=== PATIENT | female | born 1990 | race Caucasian/White ===

== ENCOUNTER → 2019-12-14 09:49 | Outpatient (BNVA) | payer BC, SELFPAY | PROVIDERS: Family Provider Nurse Practitioner Family; PCP Nurse Practitioner Family; Visit Provider Registered Nurse | DX: E03.9 Hypothyroidism, unspecified (principal) | CPT/HCPCS: 84443 ==

== ENCOUNTER → 2020-07-29 09:53 | Outpatient (BNVA) | payer BC, SELFPAY | PROVIDERS: Family Provider Nurse Practitioner Family; PCP Nurse Practitioner Family; Referring Provider Registered Nurse; Visit Provider Internal Medicine | DX: O99.282 Endocrine, nutritional and metabolic diseases complicating pregnancy, second trimester (principal); E03.9 Hypothyroidism, unspecified; E06.3 Autoimmune thyroiditis; R79.89 Other specified abnormal findings of blood chemistry | CPT/HCPCS: 99204 ==

== ENCOUNTER → 2020-08-01 08:51 | Outpatient (BNVA) | payer BC, SELFPAY | PROVIDERS: Family Provider Nurse Practitioner Family; PCP Nurse Practitioner Family; Visit Provider Registered Nurse | DX: E03.9 Hypothyroidism, unspecified (principal); R79.89 Other specified abnormal findings of blood chemistry | CPT/HCPCS: 84436 ==

== ENCOUNTER 2021-12-19 16:05 | Outpatient (CLI) | payer BC, SELFPAY ==
[2021-12-19 17:07] LABS: Free T4 Free Thyroxine 1.44 ng/dL (0.82-1.77); Thyroid Stimulating Hormone 1.56 uIU/mL (0.27-4.20)
== END 2021-12-19 16:06 | disposition home or self-care (01) ==
LOC: LAB 16:14
PROVIDERS: PCP Registered Nurse; Visit Provider Internal Medicine
DX: E03.8 Other specified hypothyroidism (principal); E06.3 Autoimmune thyroiditis; R79.89 Other specified abnormal findings of blood chemistry
CPT/HCPCS: 36415; 84439; 84443

== ENCOUNTER 2022-06-23 19:05 | Outpatient (CLI) | payer BC, SELFPAY ==
[2022-06-23] VITALS (9 sets, daily range): BP systolic 85–109; BP diastolic 50–63; PULSE 69–81; RESP 18; TEMP 36.1; BMI 30.7
[2022-06-23 20:29] LABS: Bilirubin Urine Neg (Negative); Blood Urine Neg (Negative); Glucose Urine UA Norm (Normal); Ketones Urine Negative (Negative); Leukocyte Esterase Urine Negative (Negative); Nitrate Urine Negative (Negative); Protein Urine Neg (Negative); Sulfosalicylic Acid Urine Negative (Negative); Urine Appearance SL Hazy (CLEAR); Urine Color Yellow (Yellow); Urobilinogen Urine Norm (Negative); pH Urine 8 (5-7)
[2022-06-23 20:30] LABS: Amorphous Sediment Urine 1+ /hpf; Bacteria Urine TRACE /hpf; Mucus Urine TRACE /hpf; RBC Urine RARE /hpf (0-2); Squamous Epithelial Cell Urine 0-4 /hpf (0-5); WBC Urine 0-4 /hpf (0-5)
[2022-06-23 20:31] LABS: Add Urine Culture? No; Coarse Granular Casts Urine 0-4 /lpf
== END 2022-06-23 20:45 | disposition home or self-care (01) ==
LOC: OPOB 19:17 → OBGYN 19:18
PROVIDERS: PCP Registered Nurse; Visit Provider Family Medicine
DX: O26.899 Other specified pregnancy related conditions, unspecified trimester (principal); Z3A.00 Weeks of gestation of pregnancy not specified; R10.9 Unspecified abdominal pain; M54.9 Dorsalgia, unspecified
CPT/HCPCS: 81001; 99211; J0330; J1170; J2370; J2405; J2704; J2710; J3010; J3490

== ENCOUNTER 2022-06-23 20:52 | Observation (INO) | payer BC, SELFPAY ==
[2022-06-23 21:12] VITALS: BP 108/63; PULSE 80; RESP 16; TEMP 36.4; O2SAT 100; BMI 32.8
[2022-06-23] MEDS: ondansetron 2 mg/ML SDV 2 mL 4 MG IVP (22:00)
[2022-06-23 22:01] VITALS: RESP 22
[2022-06-23] MEDS: morphine 4 mg/mL SDV 1 mL IVP ×2 (22:01→23:43)
[2022-06-23 22:03] LABS: Basophils % 0.2 %; Eosinophils # 0.1 10^3/uL (0.0-0.8); Eosinophils % 0.6 %; Hematocrit 30.6 % (37.0-47.0); Hemoglobin 9.7 g/dL (11.5-15.3); Lymphocytes # 1.2 10^3/uL (0.8-4.8); Lymphocytes % 10.9 %; Mean Corpuscular HGB Conc 31.7 g/dL (30.0-36.0); Mean Corpuscular Hemoglobin 26.2 pg (28.0-34.0); Mean Corpuscular Volume 82.7 fl (81-99); Mean Platelet Volume 9.4 fL (7.4-10.4); Monocytes # 0.6 10^3/uL (0.2-0.9); Monocytes % 5.6 %; Neutrophils # 9.28 10^3/uL (1.8-7.7); Neutrophils % 82.3 %; Nucleated Red Blood Cells % 0 %; Platelet Count 313 10^3/cmm (130-400); Red Cell Distribution Width 13.1 % (12.1-15.1); White Blood Count 11.3 10^3/uL (4.0-10.0)
[2022-06-23] MEDS: metoclopramide 5 mg/mL SDV 2 mL 10 MG IVP (22:04)
[2022-06-23] MEDS: sodium chloride 0.9% 1,000 ML 999 ML IV ×2 (22:11→23:43)
--- NOTE | 2022-06-23 22:16 | USR_ITS ---
NOTE: Report was unsigned for reason: Order was edited. Original Signature date and time was: 06/23/2022 [id number] PROCEDURE INFORMATION: Exam: US , Limited Exam date and time: 06/23/2022 10:24 PM Age: 31 years old Clinical indication: complicated by abdominal or pelvic pain; Generalized abdominal pain; Second trimester (14 weeks 0 days to 27 weeks 6 days); Gestational age or lmp: 25w2d; ; Additional info: Abd pain 25 wks preg. LABS AND CLINICAL REPORTS: Serum Choriogonadotropin (HCG): 0 mIU/mL Last menstrual period start date: Unknown; 12/26/2021 Gestational age (Established): 25 w 4 d Estimated due date (Established): 10/02/2022 TECHNIQUE: Imaging protocol: Real-time ultrasound of the maternal uterus with image documentation. Exam focused on the clinical indication. COMPARISON: US OB >= 14 weeks fetus [id number] 05/08/2022 11:19 AM FINDINGS: Gestation: Single live intrauterine fetus in transverse presentation. heart rate: 138 bpm presentation: Transverse presentation. Placenta: Posterior placenta without previa. Amniotic fluid: Amniotic fluid volume is normal. Amniotic fluid index: GARRETT is 15 cm. BIOMETRY: Gestational age (AUA): 25 w 2 d Estimated due date (AUA): 10/04/2022 Head circumference (HC): 22.2 cm. EGA (HC) is 24 w 1 d Femur length (FL): 4.9 cm. EGA (FL) is 26 w 3 d Cephalic Index (CI): 0.92 FL/HC: 0.22 MATERNAL: Cervix: Cervical length measures 3.4 cm. [facility]US pelvic limited [id number] IMPRESSION: Single live intrauterine fetus in transverse presentation with gestational age by ultrasound of 25 weeks 2 days and estimated due date of 10/04/2022.
[2022-06-23 22:24] LABS: Alanine Aminotransferase 8 U/L (0-33); Albumin Level 3.8 g/dL (3.5-5.2); Alkaline Phosphatase 67 U/L (35-105); Anion Gap 19.5 (5-19); Aspartate Amino Transferase 13 U/L (0-32); Blood Urea Nitrogen 4 mg/dL (6-20); C Reactive Protein 3.4 mg/L (0.0-4.9); Calcium 9.1 mg/dL (8.5-10.5); Carbon Dioxide 17 mmol/L (22-29); Chloride 106 mmol/L (98-107); Creatine Phosphokinase 72 U/L (26-192); Globulin 3.1 g/dL (1.3-4.6); Glucose 92 mg/dL (65-115); Lipase 23 U/L (13-60); Osmolality Calculated 285 mOsm/kg (285-295); Potassium 3.5 mmol/L (3.5-5.1); Sodium 139 mmol/L (136-145); Total Bilirubin 0.5 mg/dL (0.15-1.2); Total Protein 6.9 g/dL (6.6-8.7)
[2022-06-23 23:43] VITALS: RESP 14
--- NOTE | 2022-06-23 23:51 | CTR_ITS ---
PROCEDURE INFORMATION: Exam: CT Abdomen And Pelvis Without Contrast Exam date and time: 06/23/2022 11:59 PM Age: 31 years old Clinical indication: Abdominal pain; Additional info: Epigastric and luq pain, 25w gestation TECHNIQUE: Imaging protocol: Computed tomography of the abdomen and pelvis without contrast. Radiation optimization: All CT scans at this facility use at least one of these dose optimization techniques: automated exposure control; mA and/or kV adjustment per patient size (includes targeted exams where dose is matched to clinical indication); or iterative reconstruction. COMPARISON: pelvic limited [id number] 06/23/2022 10:24 PM RADIATION DOSE METRICS: Total DLP (mGy-cm): 676.6 FINDINGS: Liver: No acute abnormality on noncontrast imaging. Gallbladder and bile ducts: Moderately distended gallbladder without evidence of gallstones. No significant biliary ductal dilatation. Pancreas: No acute abnormality. No ductal dilation. Spleen: No acute abnormality. Adrenal glands: No acute abnormality. No mass. Kidneys and ureters: Mild bilateral hydronephrosis. Stomach and bowel: No acute abnormality. No obstruction. No significant bowel thickening. Appendix: 12-14 mm diameter dilated thickened fluid-filled retrocecal appendix with periappendiceal inflammation consistent with acute appendicitis. Proximal appendicolith. Intraperitoneal space: No significant fluid collection. No free air. Vasculature: No acute abnormality. No abdominal aortic aneurysm. Lymph nodes: No enlarged lymph nodes. Urinary bladder: Moderately distended urinary bladder. No bladder calculi. Reproductive: Prominent gravid uterus containing single fetus in vertex presentation. Bones/joints: No acute osseous abnormality. No dislocation. Soft tissues: Mild rectus abdominis diastasis and ventral eventration. CT/CT abdomen pelvis [facility] [id number] IMPRESSION: 1. 12-14 mm diameter dilated thickened fluid-filled retrocecal appendix with periappendiceal inflammation consistent with acute appendicitis. 2. Mild bilateral hydronephrosis. 3. Prominent gravid uterus containing single fetus in vertex presentation.
[2022-06-24] VITALS (18 sets, daily range): BP systolic 96–118; BP diastolic 53–70; PULSE 73–98; RESP 15–23; TEMP 36.2–36.8; O2SAT 97–100
[2022-06-24] MEDS: piperacillin-tazobactam 3.375 GM in sodium chloride 0.9% (plus) 50 ML IV ×3 (01:12→16:38)
[2022-06-24] MEDS: morphine 4 mg/mL SDV 1 mL IVP (01:22)
[2022-06-24] MEDS: lactated ringers 1,000 ML 125 ML IV ×2 (03:18→16:38)
[2022-06-24] MEDS: acetaminophen 325 mg Tablet 650 MG PO ×3 (06:39→23:02)
--- NOTE | 2022-06-24 07:37 | P.ANESASSM_ITS ---
Pre-Anesthetic Assessment Height/Weight: Height 1.52 m Weight 76.204 kg Temp Pulse Resp BP Pulse Ox O2 Del Method 98.0 F 82 16 105/62 99 06/24/22 07:33 06/24/22 07:33 06/24/22 07:33 06/24/22 07:33 06/24/22 07:33 06/24/22 07:33 Preop Diagnosis: acute appendicitis Familial anesthetic complications: laparoscopic appendectomy Was Beta Beth taken within 24 hours: N/A Was Clonidine taken within 24 hours: N/A Last intake: none Social No alcohol and No tobacco Exam alert, oriented x 3, clear to auscultation bilaterally and regular rate & rhythm Airway Submandibular: within normal limits Cervical ROM: within normal limits Mallampati: Class II Dentition: full History/ROS No significant complaints Pulmonary None reported CV/HEM None reported None reported Hepatic None reported GI None reported Metabolic Thyroid Disease Obesity [facility] [place] None reported Neuropsych None reported Anesthetic Plan ASA status: 2 Anesthesia: Anesthesia Evaluation and General Other: We discussed risk and benefits of general anesthesia including PONV, sore throat (sometimes severe), corneal abrasion, positioning and peripheral nerve injuries, life threatening allergic reaction, post operative ICU admission requiring prolonged intubation, aspiration, stroke, heart attack, , injury/naif th, premature , risk of medications to development , and rare incidences of recall. Patient consents to proceed with general anesthesia. Discussed patient with Doctor Gilma and Doctor Miguel regarding use of betamethasone. Plan 2 doses of 12 mg IM betamethasone. Orders placed. Patient and her instructed to f/u w/ outpatient OB department if she is discharged tomorrow morning prior to receiving her second dose of betamethasone. Risk of > 500 ml blood loss (7ml/kg in children): No Other Pertinent Information 2nd trimester Medications/Allergies Home Medications Medication Instructions Recorded Confirmed Last Taken Type levothyroxine 175 mcg capsule 175 mcg PO DAILY #90 caps 10/19/21 06/23/22 06/22/22 20:00 Rx Allergies Allergy/AdvReac Type Severity Reaction Status Date / Time No Known Allergies Allergy Verified 06/23/22 22:16 Current Medications Generic Name Dose Route Start Last Admin Trade Name Freq PRN Reason Stop Dose Admin Acetaminophen 650 mg 06/24/22 06:31 06/24/22 06:39 Acetaminophen 325 Mg Tablet PO 650 mg Q6H PRN Administration MILD PAIN Lactated Ringer's 1,000 mls @ 125 mls/hr 06/24/22 02:43 06/24/22 03:18 Lactated Ringers IV 125 mls/hr .Q8H PARAMJIT Administration PFSH Anesthesia Medical History Darryl's disease Hypothyroidism PCOS (polycystic ovarian syndrome) Surgical History History of tonsillectomy Family History Brother Diabetes Cancer brain seizures Social History Smoking and tobacco status: former smoker (stopyear 2018) Alcohol intake: never Adopted: No Caregiver/support person: No Lives independently: No Household members: spouse Marital status: Current occupational status: employed History of recent travel: No Sexually active: Yes Current gender identity: Female Data Anesthesia : 06/23/22 21:47 06/23/22 21:47 Short CBC 06/23/22 Range/Units 21:47 WBC 11.3 H (4.0-10.0) 10^3/uL Hgb 9.7 L (11.5-15.3) g/dL Hct 30.6 L (37.0-47.0) % MCV 82.7 (81-99) fl Plt Count 313 (130-400) 10^3/cmm Neut % (Auto) 82.3 % Neut # (Auto) 9.28 H (1.8-7.7) 10^3/uL BMP 06/23/22 21:47 Sodium 139 Potassium 3.5 Chloride 106 Carbon Dioxide 17 L BUN 4 L Creatinine 0.5 Glucose 92 Calcium 9.1 Cardiac Enzymes 06/23/22 Range/Units 21:47 Creatine Kinase 72 (26-192) U/L Liver Function 06/23/22 Range/Units 21:47 Total Bilirubin 0.5 (0.15-1.2) mg/dL AST 13 (0-32) U/L ALT 8 (0-33) U/L Alkaline Phosphatase 67 (35-105) U/L Albumin 3.8 (3.5-5.2) g/dL Coags 06/23/22 21:47 C-Reactive Protein 3.4 Cardiac Studies: No Data to Display
--- NOTE | 2022-06-24 07:53 | P.HP_ITS ---
Providers/Chief Complaint Admitting Physician: Ravin Rivera DO Primary Care Provider: ELSIE Palmer Chief Complaint: upper abd pain/back pain History of Present Illness Kitty Cunningham is a 31 year old female, who is 26 weeks with her third child, presents to the hospital with 1 day history of abdominal pain. She reports her abdominal pain was in the bilateral upper quadrants and radiating to her back. The pain is mostly localized to her right upper quadrant now. She did have nausea and vomiting. Denies any vaginal bleeding. Denies any hematemesis. She has had no issues with this or her previous pregnancies. She is never had surgery on her abdomen. CT of the abdomen was performed in the ER and acute appendicitis was diagnosed. She denies any fever or chills. Review of Systems General: Reports: 10 or more systems reviewed and unremarkable except in HPI and below Medications/Allergies Home Medications Medication Instructions Recorded Confirmed Last Taken Type levothyroxine 175 mcg capsule 175 mcg PO DAILY #90 caps 10/19/21 06/23/22 06/22/22 20:00 Rx Allergies Allergy/AdvReac Type Severity Reaction Status Date / Time No Known Allergies Allergy Verified 06/23/22 22:16 PFSH Acute PFSH: Medical History Darryl's disease Hypothyroidism PCOS (polycystic ovarian syndrome) Surgical History History of tonsillectomy Family History Brother Diabetes Cancer brain seizures Social History Smoking and tobacco status: former smoker (stopyear 2019) Alcohol intake: never Adopted: No Caregiver/support person: No Lives independently: No Household members: spouse Marital status: Current occupational status: employed History of recent travel: No Sexually active: Yes Current gender identity: Female Vitals/I&O/Wt Last Vital Signs Temp 98.0 F 06/24/22 07:33 Pulse 82 06/24/22 07:33 Resp 16 06/24/22 07:33 BP 105/62 06/24/22 07:33 Pulse Ox 99 06/24/22 07:33 O2 Del Method 06/24/22 07:33 06/23/22 06/24/22 06/24/22 22:59 06:59 14:59 Intake Total 2049 Balance 2049 Weight last 48 hrs Weight 168 lb Physical Exam Narrative: General : Patient is well developed , no acute distress, oriented x3 Head : Normal cephalic, a-traumatic. Ears : Pinnae and external canal are normal. Hearing is normal. Eyes : PERRLA, Sclera and injection are normal. No conjunctival discharge. Nose : Mucous membranes are without erythema. Throat : buccal mucosa is normal, gums are without significant recession or hypertrophy. Lungs : Equal chest rise bilaterally, no use of accessory muscles, trachea is midline. Cor : Rate and rhythm are normal. Abdomen : Soft, gravid uterus, mild right upper quadrant tenderness, no g/r/m Extremities : No edema, no cyanosis or clubbing, dorsalis pedis pulses are present bilaterally, non-tender to palpation of calves. Upper extremities are normal bilaterally. Back : non-tender to palpation, no CVA tenderness. Neuro : CN II - XII intact, Upper and lower extremities have equal and full strength Data : 06/23/22 21:47 06/23/22 21:47 A&P Assessment and plan (1) Acute appendicitis: Status: Acute (2) Gravid uterus at 24 to 28 weeks size: Status: Acute Plan AWC lap appendectomy withLaparoscopic Appendectomy The risks and benefits of the procedure, including but not limited to, bleeding, infection, scar, numbness, pain, damage to surrounding structures, conversion to an open procedure, were explained to the patient. I explained to her that there is about a 4% chance of early or demise with surgery. However the risks of not performing appendectomy for both the mother and the child are higher. She is understanding of the risks and wishes to proceed.. Attestations Medical Necessity Statement*: Patient will be kept over. for antibiotics and observation. She will stay longer if she is perforated Coding Level of Care Code Acute Oil Well Cable Tool Operator for Marielena Edwards Diagnoses Acute appendicitis K35.80 Gravid uterus at 24 to 28 weeks size Z34.90
[2022-06-24] MEDS: betamethasone susp 6 mg/mL 5 mL 12 MG IM (08:24)
[2022-06-24] MEDS: sodium chloride 0.9% 1,000 ML 30 ML IV (08:29)
--- NOTE | 2022-06-24 09:07 | SUR.OPER ---
0847 heart tones 130 per doppler
--- NOTE | 2022-06-24 09:32 | P.OP_ITS ---
Operative Report Date of procedure: June 24, 2022 Pre-op diagnosis: Preop Diagnosis acute appendicitis Post-op diagnosis: same Procedure done: Laparoscopic appendectomy Specimens removed/disposition: Appendix Surgeon: Dr. Ravin Rivera DO Anesthesia: General Estimated blood loss (mL): 5 Complications: None apparent Brief History: This is a very pleasant 31-year-old female who presented with acute appendicitis. Laparoscopic appendectomy was indicated. The risks and benefits were explained and documented Procedure: Patient was wheeled into the operative room and placed on the OR table in a supine position. Abdomen was inspected prepped and draped in usual sterile fashion. Time-out was performed and all present were in agreement. A 15 blade scalp was used to make a stab incision in the left upper quadrant and intra- abdominal insufflation was achieved using a Veress needle. A 5 mm trocar was then placed into this incision with Optiview. After localizing the tissue incisions were made and a 12 millimeter trocar was placed into the umbilicus as well as a 5mm in the right lower quadrant. The appendix was identified and was mildly inflamed. I used the Enseal to ligate the mesoappendix at the base. I then used 2 PDS endo-loops to snare the base of the appendix. I then used the Enseal to ligate the appendix distally. The appendix was removed from the abdomen using an Endo-Catch bag through the umbilical incision. I examined the abdomen and no further pathology was identified. Hemostasis was noted. I then closed the umbilical site with a Pavan-Marce and 0 Vicryl suture in a figure of 8 fashion. All ports removed. Skin was washed and dried. Incisions were closed with 4 O Vicryl in a subcuticular interrupted fashion. Skin glue was applied. Patient tolerated the procedure well.
--- NOTE | 2022-06-24 09:32 | SUR.OPER ---
0932 heart tones- 140 per doppler
[2022-06-24] MEDS: fentaNYL 50 mcg/mL INJ 2mL IVP (09:54)
--- NOTE | 2022-06-24 10:12 | SUR.PHASEI ---
1013 T 120
--- NOTE | 2022-06-24 10:44 | ANE.PACU2 ---
Inpatient post-anesthesia follow up: Airway intact: Yes Vital signs: Temperature 97.5 F Pulse Rate 90 Respiratory Rate 16 Blood Pressure 105/57 Pulse Oximetry 100 Oxygen Delivery Me thod Room Air Oxygen Flow Rate 6 Fraction of Inspir ed Oxygen Hydration adequate: Yes Nausea and vomiting: No Pain level: 5 Mental status: Baseline
[2022-06-24] MEDS: cetylpyridinium Lozenge 1 EACH MUCOUS MEM (11:54)
--- NOTE | 2022-06-24 16:02 | ED_ITS ---
HPI - Abdominal Pain General: Chief Complaint: Abdominal Pain Stated Complaint: upper abd pain/back pain Time Seen by Provider: 06/23/22 21:36 Source: patient and family History of Present Illness: 31 year old female at 25 weeks. She presents with abdominal pain, mainly in the epigastrium, and across her back. This has been increasing for 24 hours or so. She has vomited. She was evaluated and OB, and had positive movement, with good heart rates, and no contractions. Ultrasound was not completed. She was sent here for further evaluation. She denies any vaginal bleeding or discharge. No loss of fluid. No dyuria. she has been chilling. MD elicited complaint: abdominal pain Pertinent past history: other Onset (ago): hour(s) (24) Pain Consistency: constant Location: Epigastric Severity: severe Radiation: back Exacerbating factors: nothing Relieving factors: nothing Associated Symptoms: Reports fever(s), nausea, poor appetite and vomiting; Denies diarrhea and hematemesis Review of Systems Const: Reports: fever(s) Eyes: Denies: change in vision Card: Denies: chest pain or palpitations Resp: Denies: dyspnea, productive cough, non-productive cough or wheezing GI: Reports: abdominal pain, nausea and vomiting; Denies: hematemesis or diarrhea : Denies: difficulty voiding Skin/Breast: Denies: rash Neuro: Denies: headache(s), weakness in extremities, dizziness or confusion PFSH ED PFSH: Medical History Darryl's disease Hypothyroidism PCOS (polycystic ovarian syndrome) Surgical History History of tonsillectomy Family History Brother Diabetes Cancer brain seizures Social History Smoking and tobacco status: former smoker (stopyear 2019) Alcohol intake: never Adopted: No Caregiver/support person: No Lives independently: No Household members: spouse Marital status: Current occupational status: employed History of recent travel: No Sexually active: Yes Current gender identity: Female Physical Exam Const: GENERAL APPEARANCE: cooperative, in distress and ill appearing; not frail appearing NUTRITIONAL APPEARANCE: overweight ORIENTATION /CONSCIOUSNESS: Yes awake HENMT: COMMON NORMALS: normocephalic, atraumatic and Normal external nose present HEAD & SCALP: normocephalic and atraumatic FACE & SINUS: normal facial exam and face symmetric NOSE: Normal external nose present Eye: COMMON NORMALS: Equal, round and reactive pupils present and EOMs intact bilaterally PUPIL: Yes Equal, round and reactive pupils present Neck/C-Spine: GENERAL: Yes trachea midline Chest: CHEST: Yes Symmetrical chest wall rise Resp: COMMON NORMALS: normal respiratory effort, No retractions, No use of accessory muscles and clear to auscultation bilaterally AUSCULTATION: clear to auscultation bilaterally Cardio: COMMON NORMALS: regular rate and regular rhythm RATE: regular rate RHYTHM: regular rhythm GI: COMMON NORMALS: Soft to palpation INSPECTION: Yes gravid abdomen AUSCULTATION: Yes Hypoactive bowel sounds present PALPATION: Yes Soft to palpation, Yes Tenderness to palpation present (GI) Details: LUQ and RUQ and Yes Guarding due to palpation present (GI) : BLADDER/KIDNEY EXAM: Yes CVA tenderness bilateral Back/Pelvis: GENERAL BACK: Yes CVA tenderness Extremity: COMMON NORMALS: no pedal edema Neuro: NOE COMA SCALE: document GCS findings Noe coma scale eye op ening: Spontaneous [place] coma scale verbal response: Orientated Noe coma scale motor response: Obey commands [place] coma scale total score: 15 SENSORY EXAM: Yes extremities (intact) Psych: COMMON NORMALS: speech normal SPEECH: Yes normal speech Skin: COMMON NORMALS: no rashes or lesions noted GENERAL SKIN EXAM: no rashes or lesions noted Course Vital Signs: Vital signs: Vital Signs Temperature 98.2 F 06/24/22 15:36 Pulse Rate 90 06/24/22 15:36 Respiratory Rate 17 06/24/22 15:36 Blood Pressure 104/68 06/24/22 15:36 Pulse Oximetry 97 06/24/22 15:36 Oxygen Delivery Me thod 06/24/22 15:36 Oxygen Flow Rate 6 06/24/22 10:01 MDM - Abdominal Pain Medical Decision Making Patient continued to appear ill despite 2 liter fluid bolus, pain medication and anti emetic. Pelvic ultrasound was performed, and revealed a normal GARRETT, no placental abruption, good movement, and a rate of 138. No pelvic free fluid was noted. Due to continued tenderness, ill appearance, contacted the patients laser set up operator. We agreed CT was warranted. Despite a minimal Leukocytosis, and normal CRP, a 14 millimeter appendix was found. No evidence of rupture. She is placed on antibiotics. Surgery was consulted. They will see the patient later this morning for likely management in the OR. Lab Data : 06/23/22 21:47 06/23/22 21:47 Labs/Radiology: Radiology Impressions Pelvis Ultrasound 06/23/22 22:16 IMPRESSION: Single live intrauterine fetus in transverse presentation with gestational age by ultrasound of 25 weeks 2 days and estimated due date of 10/04/2022. Abdomen/Pelvis CT 06/23/22 23:51 IMPRESSION: 1. 12-14 mm diameter dilated thickened fluid-filled retrocecal appendix with periappendiceal inflammation consistent with acute appendicitis. 2. Mild bilateral hydronephrosis. 3. Prominent gravid uterus containing single fetus in vertex presentation. ADDENDUM: 06/24/22 0038 YURIY Florentino acknowledged receipt of report, being aware of the findings and having no further questions at 12:34 AM CDT 06/24/2022. Laboratory Results WBC 11.3 10^3/uL (4.0-10.0) H 06/23/22 21:47 RBC 3.70 10^6/uL (4.1-5.3) L 06/23/22 21:47 Hgb 9.7 g/dL (11.5-15.3) L 06/23/22 21:47 Hct 30.6 % (37.0-47.0) L 06/23/22 21:47 MCV 82.7 fl (81-99) 06/23/22 21:47 MCH 26.2 pg (28.0-34.0) L 06/23/22 21:47 MCHC 31.7 g/dL (30.0-36.0) 06/23/22 21:47 RDW 13.1 % (12.1-15.1) 06/23/22 21:47 Plt Count 313 10^3/cmm (130-400) 06/23/22 21:47 MPV 9.4 fL (7.4-10.4) 06/23/22 21:47 Neut % (Auto) 82.3 % 06/23/22 21:47 Lymph % (Auto) 10.9 % 06/23/22 21:47 Shannon % (Auto) 5.6 % 06/23/22 21:47 Eos % (Auto) 0.6 % 06/23/22 21:47 Baso % (Auto) 0.2 % 06/23/22 21:47 Neut # (Auto) 9.28 10^3/uL (1.8-7.7) H 06/23/22 21:47 Lymph # (Auto) 1.2 10^3/uL (0.8-4.8) 06/23/22 21:47 Shannon # (Auto) 0.6 10^3/uL (0.2-0.9) 06/23/22 21:47 Eos # (Auto) 0.1 10^3/uL (0.0-0.8) 06/23/22 21:47 Baso # (Auto) 0.0 10^3/uL (0.0-0.1) 06/23/22 21:47 Nucleated RBC % (auto) 0 % 06/23/22 21:47 Nucleated RBCs # 0.0 /100WBC 06/23/22 21:47 Sodium 139 mmol/L (136-145) 06/23/22 21:47 Potassium 3.5 mmol/L (3.5-5.1) 06/23/22 21:47 Chloride 106 mmol/L (98-107) 06/23/22 21:47 Carbon Dioxide 17 mmol/L (22-29) L 06/23/22 21:47 Anion Gap 19.5 (5-19) H 06/23/22 21:47 BUN 4 mg/dL (6-20) L 06/23/22 21:47 Creatinine 0.5 mg/dL (0.5-0.9) 06/23/22 21:47 GFR Calculation 143.0 mL/min (90-130) H 06/23/22 21:47 Glucose 92 mg/dL (65-115) 06/23/22 21:47 Calculated Osmolality 285 mOsm/kg (285-295) 06/23/22 21:47 Calcium 9.1 mg/dL (8.5-10.5) 06/23/22 21:47 Total Bilirubin 0.5 mg/dL (0.15-1.2) 06/23/22 21:47 AST 13 U/L (0-32) 06/23/22 21:47 ALT 8 U/L (0-33) 06/23/22 21:47 Alkaline Phosphatase 67 U/L (35-105) 06/23/22 21:47 Creatine Kinase 72 U/L (26-192) 06/23/22 21:47 C-Reactive Protein 3.4 mg/L (0.0-4.9) 06/23/22 21:47 Total Protein 6.9 g/dL (6.6-8.7) 06/23/22 21:47 Albumin 3.8 g/dL (3.5-5.2) 06/23/22 21:47 Globulin 3.1 g/dL (1.3-4.6) 06/23/22 21:47 Lipase 23 U/L (13-60) 06/23/22 21:47 Discharge Plan Discharge Patient Disposition: Admitted As Inpatient Admit Provider: Ravin Rivera Clinical Impression: Acute appendicitis Condition: Fair Coding Level of Care Code ED Tube Maker for Marielena Edwards
[2022-06-25] MEDS: piperacillin-tazobactam 3.375 GM in sodium chloride 0.9% (plus) 50 ML IV (02:11)
[2022-06-25] MEDS: lactated ringers 1,000 ML 125 ML IV ×2 (02:12→06:02)
[2022-06-25 07:51] VITALS: BP 108/67; PULSE 98; RESP 12; TEMP 36.7; O2SAT 98
--- NOTE | 2022-06-25 09:05 | PM.DCS ---
Discharge Providers Date of Admission: 06/24/22 01:54 Date of Discharge: June 25, 2022 Attending Provider at Admission: Ravin Rivera DO Attending Provider at Discharge: Ravin Rivera DO Primary Care Provider: ELSIE Palmer Diagnoses at Discharge Discharge Diagnosis (1) Acute appendicitis: Status: Acute (2) Gravid uterus at 24 to 28 weeks size: Status: Acute Reason for Visit Reason for Visit: upper abd pain/back pain Hospital Course Hospital Course Patient presented to the hospital 26 weeks and with acute appendicitis. Laparoscopic appendectomy was performed uneventfully and patient was discharged home the next day in good condition. Physical Exam Narrative: General : Patient is well developed , no acute distress, oriented x3 Head : Normal cephalic, a-traumatic. Ears : Pinnae and external canal are normal. Hearing is normal. Eyes : PERRLA, Sclera and injection are normal. No conjunctival discharge. Nose : Mucous membranes are without erythema. Throat : buccal mucosa is normal, gums are without significant recession or hypertrophy. Lungs : Equal chest rise bilaterally, no use of accessory muscles, trachea is midline. Cor : Rate and rhythm are normal. Abdomen : Soft, mildly distended, gravid uterus, appropriately tender to palpation, no guarding or rebound Extremities : No edema, no cyanosis or clubbing, dorsalis pedis pulses are present bilaterally, non-tender to palpation of calves. Upper extremities are normal bilaterally. Back : non-tender to palpation, no CVA tenderness. Neuro : CN II - XII intact, Upper and lower extremities have equal and full strength Discharge Data Studies Completed and Pending Completed Studies During Hospitalization Category Date Time Status CT abdomen pelvis wo con [id number] Stat Cat Scan 06/23/22 23:51 Completed US pelvic limited [id number] Stat Ultrasound 06/23/22 22:16 Completed Pending at discharge Category Date Time Status Pathology: Surgical [PTH] Routine Pth 06/24/22 09:27 Ordered Radiology Impressions Pelvis Ultrasound 06/23/22 22:16 IMPRESSION: Single live intrauterine fetus in transverse presentation with gestational age by ultrasound of 25 weeks 2 days and estimated due date of 10/04/2022. Abdomen/Pelvis CT 06/23/22 23:51 IMPRESSION: 1. 12-14 mm diameter dilated thickened fluid-filled retrocecal appendix with periappendiceal inflammation consistent with acute appendicitis. 2. Mild bilateral hydronephrosis. 3. Prominent gravid uterus containing single fetus in vertex presentation. ADDENDUM: 06/24/22 0038 YURIY Florentino acknowledged receipt of report, being aware of the findings and having no further questions at 12:34 AM CDT 06/24/2022. Laboratory Results WBC 11.3 10^3/uL (4.0-10.0) H 06/23/22 21:47 RBC 3.70 10^6/uL (4.1-5.3) L 06/23/22 21:47 Hgb 9.7 g/dL (11.5-15.3) L 06/23/22 21:47 Hct 30.6 % (37.0-47.0) L 06/23/22 21:47 MCV 82.7 fl (81-99) 06/23/22 21:47 MCH 26.2 pg (28.0-34.0) L 06/23/22 21:47 MCHC 31.7 g/dL (30.0-36.0) 06/23/22 21:47 RDW 13.1 % (12.1-15.1) 06/23/22 21:47 Plt Count 313 10^3/cmm (130-400) 06/23/22 21:47 MPV 9.4 fL (7.4-10.4) 06/23/22 21:47 Neut % (Auto) 82.3 % 06/23/22 21:47 Lymph % (Auto) 10.9 % 06/23/22 21:47 [place] % (Auto) 5.6 % 06/23/22 21:47 Eos % (Auto) 0.6 % 06/23/22 21:47 Baso % (Auto) 0.2 % 06/23/22 21:47 Neut # (Auto) 9.28 10^3/uL (1.8-7.7) H 06/23/22 21:47 Lymph # (Auto) 1.2 10^3/uL (0.8-4.8) 06/23/22 21:47 [place] # (Auto) 0.6 10^3/uL (0.2-0.9) 06/23/22 21:47 Eos # (Auto) 0.1 10^3/uL (0.0-0.8) 06/23/22 21:47 Baso # (Auto) 0.0 10^3/uL (0.0-0.1) 06/23/22 21:47 Nucleated RBC % (auto) 0 % 06/23/22 21:47 Nucleated RBCs # 0.0 /100WBC 06/23/22 21:47 Sodium 139 mmol/L (136-145) 06/23/22 21:47 Potassium 3.5 mmol/L (3.5-5.1) 06/23/22 21:47 Chloride 106 mmol/L (98-107) 06/23/22 21:47 Carbon Dioxide 17 mmol/L (22-29) L 06/23/22 21:47 Anion Gap 19.5 (5-19) H 06/23/22 21:47 BUN 4 mg/dL (6-20) L 06/23/22 21:47 Creatinine 0.5 mg/dL (0.5-0.9) 06/23/22 21:47 GFR Calculation 143.0 mL/min (90-130) H 06/23/22 21:47 Glucose 92 mg/dL (65-115) 06/23/22 21:47 Calculated Osmolality 285 mOsm/kg (285-295) 06/23/22 21:47 Calcium 9.1 mg/dL (8.5-10.5) 06/23/22 21:47 Total Bilirubin 0.5 mg/dL (0.15-1.2) 06/23/22 21:47 AST 13 U/L (0-32) 06/23/22 21:47 ALT 8 U/L (0-33) 06/23/22 21:47 Alkaline Phosphatase 67 U/L (35-105) 06/23/22 21:47 Creatine Kinase 72 U/L (26-192) 06/23/22 21:47 C-Reactive Protein 3.4 mg/L (0.0-4.9) 06/23/22 21:47 Total Protein 6.9 g/dL (6.6-8.7) 06/23/22 21:47 Albumin 3.8 g/dL (3.5-5.2) 06/23/22 21:47 Globulin 3.1 g/dL (1.3-4.6) 06/23/22 21:47 Lipase 23 U/L (13-60) 06/23/22 21:47 Procedures Performed Laparoscopic appendectomy Vitals Last Vital Signs Temp 98.0 F 06/25/22 07:51 Pulse 98 06/25/22 07:51 Resp 12 06/25/22 07:51 BP 108/67 06/25/22 07:51 Pulse Ox 98 06/25/22 07:51 O2 Del Method 06/25/22 07:51 O2 Flow Rate 6 06/24/22 10:01 Discharge Plan Discharge Patient Disposition: Home Condition: Fair Prescriptions: New hydrocodone-acetaminophen 7.5-325 mg tablet 1 tab PO Q4H PRN (Reason: pain) Qty: 30 0RF amoxicillin-pot clavulanate 875-125 mg tablet 1 tab PO BID 13 Days Qty: 26 0RF Continued Euthyrox 125 mcg tablet 250 mcg PO DAILY Discharge Orders: Discharge Order (Routine); Ordered 06/25/22 Ordered By: Ravin Rivera Referrals: Ravin Rivera DO [Physician] - 2 weeks Discharge Diet: Advance as tolerated Discharge Activity: Resume usual activity Patient Instructions: Opioid Safety, Post Anesthesia Care Activity Restrictions/Additional Instructions: Do not soak incisions underwater for 2 weeks Discharge Attestations Time Spent in Discharge Care*: less than 30 min Quality Metrics Clinical Quality Measures [ No reported AMI, CVA or VTE this stay] Coding Level of Care Code Acute Chg FW DC note Diagnoses Acute appendicitis K35.80 Gravid uterus at 24 to 28 weeks size Z34.90
[2022-06-25] MEDS: acetaminophen 325 mg Tablet 650 MG PO (09:19)
[2022-06-25] MEDS: betamethasone susp 6 mg/mL 5 mL 12 MG IM (10:09)
--- NOTE | 2022-06-25 11:19 | PC.NURSE ---
Dopplered FHT at bedside at 1030 06/25/22, FHT consistently in 150s.
[2022-06-25 12:21] VITALS: BP 108/67; PULSE 98; RESP 12; TEMP 36.7; O2SAT 98
== END 2022-06-25 12:15 | disposition home or self-care (01) ==
LOC: ER 21:36 → MEDSURG 06-24 02:20
PROVIDERS: Admitting Provider Surgery; Emergency Provider Emergency Medicine; PCP Registered Nurse; Visit Provider Surgery
PROC: 0DTJ4ZZ Resection of Appendix, Percutaneous Endoscopic Approach (ICD-10-PCS; CPT 44970; principal; 2022-06-24 08:00)
DX: O99.613 Diseases of the digestive system complicating pregnancy, third trimester (principal); Z3A.26 26 weeks gestation of pregnancy; K35.80 Unspecified acute appendicitis
CPT/HCPCS: 44970; 74176; 76815; 76857; 80053; 82550; 83690; 85025; 86140; 88304; 96365; 96372; 96375; 96376; 99285; G0378; J0330; J0702; J2270; J2370; J2405; J2543; J2704; J2710; J2765; J3010; J3490; J7030

== ENCOUNTER 2022-09-26 09:06 | Inpatient (IN) | payer BC, SELFPAY ==
[2022-09-26] VITALS (64 sets, daily range): BP systolic 104–144; BP diastolic 51–86; PULSE 64–152; RESP 16–17; TEMP 35.7–36.5; O2SAT 87–100; BMI 32.5
[2022-09-26 09:11] LABS: Basophils % 0.2 %; Eosinophils # 0.1 10^3/uL (0.0-0.8); Eosinophils % 1.2 %; Hematocrit 32.3 % (37.0-47.0); Hemoglobin 9.8 g/dL (11.5-15.3); Lymphocytes # 3.2 10^3/uL (0.8-4.8); Lymphocytes % 33.8 %; Mean Corpuscular HGB Conc 30.3 g/dL (30.0-36.0); Mean Corpuscular Hemoglobin 23.6 pg (28.0-34.0); Mean Corpuscular Volume 77.8 fl (81-99); Mean Platelet Volume 10.1 fL (7.4-10.4); Monocytes # 0.7 10^3/uL (0.2-0.9); Monocytes % 7.3 %; Neutrophils % 54.2 %; Nucleated Red Blood Cells % 0 %; Platelet Count 276 10^3/cmm (130-400); Red Blood Count 4.15 10^6/uL (4.1-5.3); Red Cell Distribution Width 16.1 % (12.1-15.1); White Blood Count 9.4 10^3/uL (4.0-10.0)
[2022-09-26] MEDS: lactated ringers 1,000 ML 999 ML IV (10:03)
--- NOTE | 2022-09-26 13:17 | PM.OPHPUD ---
Labor & Delivery H&P Update Date of Procedure: September 26, 2022 Date H&P Performed: 09/24/22 Admission Diagnosis: 32-year-old 3 para 2-0-0-2 at 39 weeks estimated gestational age presenting in active labor Preop diagnosis: acute appendicitis Planned procedure: Spontaneous vaginal delivery Other information: The patient has had a unremarkable overall. There have been no complications. Her labs have been as follows her blood type was O+. Her antibody screen was negative. Her glucose screen was also negative. She is GBS negative. She is rubella immune. The remainder of her infectious disease profile was within normal limits other than being HPV positive. Related Problem List Diagnoses (1) 39 weeks gestation of : (2) Active labor: A&P Assessment and plan (1) 39 weeks gestation of : I anticipate an unremarkable labor and delivery. Membranes were intact at presentation. An epidural is desired. Status: Acute (2) Active labor: Status: Acute
[2022-09-26] MEDS: oxytocin 30 UNIT/500 ML BAG 600 UNIT IV (13:36)
[2022-09-26] MEDS: fentaNYL 50 mcg/mL INJ 2mL IVP (13:46)
--- NOTE | 2022-09-26 13:47 | P.PCNOB_ITS ---
Delivery Note: Date of delivery: September 26, 2022 Pre-delivery diagnoses: 32-year-old 3 para 2-0-0-2 at 39 weeks estimated gestational age in active labor Post-delivery diagnoses: Status post spontaneous vaginal delivery Procedure: Spontaneous vaginal delivery Delivering Physician: Shaun Mazariegos Estimated blood loss (mL): 100 Pre-Delivery Course: Patient presented to the hospital in active labor. An epidural was attempted to 2 times but did not get adequate control of her pain. She progressed to an anterior lip. An amniotomy was performed. And she progressed to complete within minutes. Delivery: DELIVERY: The patient progressed to complete without difficulty. She delivered a female with a weight of 7 pounds 7 ounces with Apgars of 9, 9. The baby was delivered from the OP position and placed on the mother's abdomen. The cord was then clamped and cut. There was a nuchal cord x1 which was reduced before delivery of the shoulders. There was no meconium. The placenta and 3 vessel cord were delivered intact shortly thereafter. The perineum and vaginal vault were carefully examined. A first-degree posterior midline tear was noted which was not bleeding significantly. No repair was performed. No lacerations were noted. Both the mother and the baby were in stable condition. A&P Assessment and plan (1) Spontaneous vaginal delivery: I anticipate routine care. The patient continued to have significant pain and fentanyl was ordered. (2) 39 weeks gestation of : Coding Level of Care Code Acute Water Well Driller for Chg Fwd Diagnoses Spontaneous vaginal delivery O80 39 weeks gestation of Z3A.39
--- NOTE | 2022-09-26 13:49 | ANES.PREANE2 ---
Pre-Anesthetic Assessment Height/Weight: Height 1.52 m Weight 75.75 kg Temp Pulse Resp BP Pulse Ox O2 Del Method 96.3 F L 107 H 17 134/59 98 09/26/22 11:12 09/26/22 13:38 09/26/22 13:46 09/26/22 13:38 09/26/22 13:46 09/26/22 09:36 Preop Diagnosis: acute appendicitis epidural Familial anesthetic complications: none Social No alcohol and No tobacco Exam alert, oriented x 3, clear to auscultation bilaterally and regular rate & rhythm Airway Mallampati: Class I Dentition: full Metabolic Morbid Obesity and Thyroid Disease Anesthetic Plan ASA status: 2 Risk of > 500 ml blood loss (7ml/kg in children): No Medications/Allergies Home Medications Medication Instructions Recorded Confirmed Last Taken Type levothyroxine 125 mcg tablet 250 mcg PO DAILY 06/24/22 09/26/22 09/25/22 20:00 History (Euthyrox) Lexapro PO 09/26/22 09/25/22 20:00 History iron PO 1XD 09/26/22 09/25/22 20:00 History Allergies Allergy/AdvReac Type Severity Reaction Status Date / Time No Known Allergies Allergy Verified 07/06/22 09:56 Current Medications Generic Name Dose Route Start Last Admin Trade Name Freq PRN Reason Stop Dose Admin Fentanyl 25 - 100 mcg 09/26/22 08:59 09/26/22 13:46 Fentanyl 50 Mcg/Ml Inj 2ml IVP 50 mcg Q1H PRN Administration SEVERE PAIN Lactated Ringer's 1,000 mls @ 999 mls/hr 09/26/22 09:32 09/26/22 10:03 Lactated Ringers IV 999 mls/hr .Q1H1M PRN Administration See label comments PFSH Anesthesia Medical History (Updated 09/26/22 @ 13:50 by Shaun Mazariegos MD) Darryl's disease Hypothyroidism PCOS (polycystic ovarian syndrome) Surgical History (Updated 07/06/22 @ 10:22 by Ravin Rivera DO) History of tonsillectomy Status post appendectomy Family History Brother Diabetes Cancer brain seizures Social History Smoking and tobacco status: never smoked Alcohol intake: never Adopted: No Caregiver/support person: No Lives independently: No Household members: spouse Marital status: Current occupational status: employed History of recent travel: No Sexually active: Yes Current gender identity: Female Female Reproductive History : 3 Data Anesthesia 09/26/22 09:00 Short CBC 09/26/22 Range/Units 09:00 WBC 9.4 (4.0-10.0) 10^3/uL Hgb 9.8 L (11.5-15.3) g/dL Hct 32.3 L (37.0-47.0) % MCV 77.8 L (81-99) fl Plt Count 276 (130-400) 10^3/cmm Neut % (Auto) 54.2 % Neut # (Auto) 5.10 (1.8-7.7) 10^3/uL Cardiac Studies: No Data to Display Anesthesia Procedures Epidural Time Out Performed: Yes Consents Signed: Procedure Consent Consent: requested by attending/covering physician, from patient and risks and benefits reviewed Lumbar Level: L3-L4 Epidural position: sitting Epidural procedure: sterile prep of area, 1% lidocaine to numb the area, 18 g needle, negative for paresthesia passed, neg for paresthesia, test dose given, 1.5% xylocaine 1:200k epi (5 cc), 0.2% Ropivacaine bolus ml (5 cc), placed PCEA, no systemic response, sterile dressing applied, L.U.D. no apparent complications and 0.2% Ropiavacaine @ mls/hr (13) Additional Comments: First attempt at catheter placement at correct depth resulted in aspiration of heme, 2nd attempt successful, catheter aspirated minimal blood-tinged saline. Test dose coincided with contraction. Upon attempt at 2nd half of test dose, blood-tinged was aspirated again, but was more heavily bloody. Flushed with saline attempted aspiration again several times with no return of heme. 2nd half of test dose given. After infusion and multiple boluses patient wasn't comfortable on her R side, L side is numb. Bupivicaine 0.25% 10 cc given via epidural bolus. This did not help improve her right sided pain. Offered to replace epidural, but patient declined.
[2022-09-26] MEDS: HYDROcodone-acetaminophen 5-325 mg Tablet PO (14:43)
[2022-09-26] MEDS: ibuprofen 800 mg tablet PO ×2 (14:43→21:38)
[2022-09-26] MEDS: benzocaine-menthol 78 gm Canister 1 SPRAY TOPICAL (14:44)
[2022-09-26] MEDS: docusate sodium 100 mg Capsule PO (17:13)
[2022-09-27] MEDS: HYDROcodone-acetaminophen 5-325 mg Tablet PO (03:09)
[2022-09-27] MEDS: benzocaine-menthol 78 gm Canister 1 SPRAY TOPICAL (03:09)
[2022-09-27 03:19] LABS: Hematocrit 27.2 % (37.0-47.0); Hemoglobin 8.5 g/dL (11.5-15.3); Mean Corpuscular HGB Conc 31.3 g/dL (30.0-36.0); Mean Corpuscular Hemoglobin 24.4 pg (28.0-34.0); Mean Corpuscular Volume 78.2 fl (81-99); Mean Platelet Volume 10.4 fL (7.4-10.4); Platelet Count 271 10^3/cmm (130-400); Red Blood Count 3.48 10^6/uL (4.1-5.3); Red Cell Distribution Width 16.4 % (12.1-15.1); White Blood Count 15.8 10^3/uL (4.0-10.0)
[2022-09-27 04:35] VITALS: BP 107/55; PULSE 76; RESP 14; TEMP 36.8; O2SAT 98
--- NOTE | 2022-09-27 06:43 | PM.OBGYDC ---
Discharge Providers DIRECTOR [employer] Date of Admission: 09/26/22 09:06 Date of Discharge: 09/27/22 Attending Provider at Admission: Shaun Mazariegos MD Attending Provider at Discharge: Shaun Mazariegos MD Primary Care Provider: ELSIE Palmer Diagnoses at Discharge Discharge Diagnosis (1) Spontaneous vaginal delivery: Status: Acute (2) 39 weeks gestation of : Status: Acute (3) Hypothyroidism affecting : Status: Acute (4) Depression with anxiety: Status: Acute Reason for Visit Reason for Visit: Contractions Hospital Course Hospital Course Patient presented to the hospital in active labor. The patient had an epidural attempted twice. Despite that, her pain control was good. She progressed to an anterior lip, then had an amniotomy performed. She delivered her baby from an OP position. She had no significant lacerations. She did have significant perineal swelling. Her course was unremarkable. Her bleeding was minimal. Her pain was controlled. She bottle-fed. There were no concerns Information Peripartum Data: Delivery Method: Vaginal Physical Exam Narrative: The patient is alert. She appears comfortable. Her heart has a regular rate and rhythm with no murmurs appreciated. Lungs are clear to auscultation bilaterally. Her fundus is firm and below the umbilicus. Urinary Catheter Management: Villasenor Latex: Cath Placed During This Visit: yes Urinary Catheter Date of Insertion: 09/26/22 Urinary Catheter Time of Insertion: 12:10 Discharge Data Studies Completed and Pending Laboratory Results WBC 15.8 10^3/uL (4.0-10.0) H 09/27/22 03:00 RBC 3.48 10^6/uL (4.1-5.3) L 09/27/22 03:00 Hgb 8.5 g/dL (11.5-15.3) L 09/27/22 03:00 Hct 27.2 % (37.0-47.0) L 09/27/22 03:00 MCV 78.2 fl (81-99) L 09/27/22 03:00 MCH 24.4 pg (28.0-34.0) L 09/27/22 03:00 MCHC 31.3 g/dL (30.0-36.0) 09/27/22 03:00 RDW 16.4 % (12.1-15.1) H 09/27/22 03:00 Plt Count 271 10^3/cmm (130-400) 09/27/22 03:00 MPV 10.4 fL (7.4-10.4) 09/27/22 03:00 Neut % (Auto) 54.2 % 09/26/22 09:00 Lymph % (Auto) 33.8 % 09/26/22 09:00 [place] % (Auto) 7.3 % 09/26/22 09:00 Eos % (Auto) 1.2 % 09/26/22 09:00 Baso % (Auto) 0.2 % 09/26/22 09:00 Neut # (Auto) 5.10 10^3/uL (1.8-7.7) 09/26/22 09:00 Lymph # (Auto) 3.2 10^3/uL (0.8-4.8) 09/26/22 09:00 [place] # (Auto) 0.7 10^3/uL (0.2-0.9) 09/26/22 09:00 Eos # (Auto) 0.1 10^3/uL (0.0-0.8) 09/26/22 09:00 Baso # (Auto) 0.0 10^3/uL (0.0-0.1) 09/26/22 09:00 Nucleated RBC % (auto) 0 % 09/26/22 09:00 Nucleated RBCs # 0.0 /100WBC 09/26/22 09:00 Vitals Last Vital Signs Temp 98.2 F 09/27/22 04:35 Pulse 76 09/27/22 04:35 Resp 14 09/27/22 04:35 BP 107/55 09/27/22 04:35 Pulse Ox 98 09/27/22 04:35 O2 Del Method 09/27/22 04:35 Discharge Plan Discharge Patient Disposition: Home Prescriptions: New ibuprofen 800 mg Tablet 800 mg PO TID Qty: 50 0RF -U 106.5-1 mg Capsule 1 cap PO DAILY Qty: 100 0RF Continued levothyroxine [Euthyrox] 125 mcg tablet 250 mcg PO DAILY FeroSul 325 mg (65 mg iron) tablet 325 mg PO BID escitalopram oxalate 5 mg tablet 5 mg PO DAILY Discharge Orders: Discharge Order (Routine); Ordered 09/27/22 Ordered By: Shaun Mazariegos Referrals: Shaun Mazariegos MD [Physician] - 6 Weeks Discharge Diet: Usual diet Discharge Activity: Limit activity as instructed Patient Instructions: Opioid Safety Discharge Attestations [employer] Time Spent in Discharge Care*: less than 30 min Coding Level of Care Code Acute International Account Representative for Chg Fwd Diagnoses Spontaneous vaginal delivery O80 39 weeks gestation of Z3A.39 Hypothyroidism affecting O99.280; E03.9 Depression with anxiety F41.8
[2022-09-27 07:57] VITALS: BP 114/76; PULSE 74; RESP 16; TEMP 37.1
[2022-09-27] MEDS: escitalopram 10 mg Tablet PO (08:31)
[2022-09-27] MEDS: ibuprofen 800 mg tablet PO (08:31)
[2022-09-27] MEDS: docusate sodium 100 mg Capsule PO (08:31)
[2022-09-27] MEDS: prenatal vitamin Capsule 1 CAP PO (08:31)
[2022-09-27] MEDS: levothyroxine 125 mcg Tablet 250 MCG PO (08:31)
[2022-09-27 14:45] VITALS: BP 114/78; PULSE 76; RESP 18; TEMP 36.6
== END 2022-09-27 14:45 | disposition home or self-care (01) | DRG 807 ==
LOC: OPOB 13:41 → OBGYN 13:41
PROVIDERS: Admitting Provider Family Medicine; PCP Registered Nurse; Visit Provider Family Medicine
DX: O99.284 Endocrine, nutritional and metabolic diseases complicating childbirth (principal); Z37.0 Single live birth; O99.02 Anemia complicating childbirth; D64.9 Anemia, unspecified; O99.344 Other mental disorders complicating childbirth; O69.2XX0 Labor and delivery complicated by other cord entanglement, with compression, not applicable or unspecified; Z3A.39 39 weeks gestation of pregnancy; F41.8 Other specified anxiety disorders; E03.9 Hypothyroidism, unspecified
CPT/HCPCS: 12345; 36415; 51702; 59025; 59409; 85025; 85027; 96374; 99211; J2590; J2795; J3010; J7120

== ENCOUNTER → 2023-01-29 15:25 | Outpatient (BNVA) | payer BC, SELFPAY | PROVIDERS: PCP Registered Nurse; Visit Provider Registered Nurse | DX: E03.8 Other specified hypothyroidism (principal); E06.3 Autoimmune thyroiditis; E66.9 Obesity, unspecified | CPT/HCPCS: 83036 ==

== ENCOUNTER 2023-02-01 14:52 | Observation (INO) | payer BC, SELFPAY ==
[2023-02-01] VITALS (15 sets, daily range): BP systolic 109–133; BP diastolic 66–98; PULSE 64–107; RESP 16–22; TEMP 36.2–36.8; O2SAT 97–100; BMI 34.2
--- NOTE | 2023-02-01 15:03 | W.ED.ABDPA2 ---
HPI - Abdominal Pain General: Chief Complaint: Abdominal Pain Stated Complaint: abd pains, radiating pain into back Time Seen by Provider: 02/01/23 15:03 History of Present Illness: Ms. Cunningham is a 32-year-old lady presenting to the emergency department for cute onset of right abdominal and flank pain. She reports being at her baseline health and symptoms started at approximately 11 AM without known specific provoking event. She has had severe constant pain since that time. She has had nausea and now is developed vomiting. Denies history of kidney stones or frequent similar episodes in the past. No other specific changes in health, exacerbating, or alleviating factors identified. Onset (ago): hour(s) Pain Consistency: constant Location: RUQ Severity: severe Quality: stabbing and aching Radiation: R flank Migration to: no migration Exacerbating factors: movement Relieving factors: nothing Associated Symptoms: Reports nausea and vomiting; Denies change in stool character, diarrhea and fever(s) Review of Systems General: Reports: 10 or more systems reviewed and unremarkable except in HPI and below Const: Denies: fever(s) GI: Reports: nausea and vomiting; Denies: diarrhea or change in stool character [facility] ED PFSH: Medical History (Updated 02/14/23 @ 02:01 by Mg Michele MD) Darryl's disease Hypothyroidism PCOS (polycystic ovarian syndrome) Surgical History (Updated 02/12/23 @ 12:03 by ELSIE Palmer) History of tonsillectomy Status post appendectomy Family History Brother Diabetes Cancer brain seizures Social History Smoking and tobacco status: never smoked Alcohol intake: never Adopted: No Caregiver/support person: No Lives independently: No Household members: spouse Marital status: Current occupational status: employed Sexually active: Yes Current gender identity: Female Physical Exam Const: COMMON NORMALS: alert GENERAL APPEARANCE: cooperative and well developed HENMT: COMMON NORMALS: normocephalic and atraumatic HEAD & SCALP: normocephalic and atraumatic Eye: COMMON NORMALS: conjunctivae normal CONJUNCTIVA: Yes conjunctivae normal SCLERA: sclerae normal Neck/C-Spine: COMMON NORMALS: supple GENERAL: Yes trachea midline Resp: COMMON NORMALS: clear to auscultation bilaterally EFFORT & INSPECTION: Yes able to speak in complete sentences AUSCULTATION: clear to auscultation bilaterally Cardio: COMMON NORMALS: regular rate and regular rhythm RATE: regular rate RHYTHM: regular rhythm GI: COMMON NORMALS: Soft to palpation PALPATION: Yes Soft to palpation, Yes Tenderness to palpation present (GI) Details: RUQ, No Guarding due to palpation present (GI) and No Rigid due to palpation Extremity: GENERAL: Yes normal exam except as noted and No edema Neuro: COMMON NORMALS: moves all extremities SENSORIUM/ORIENTATION: Yes alert and No Orientation impaired Psych: COMMON NORMALS: mental status grossly normal and Normal thought process present THOUGHT PROCESS: Normal thought process present Course Vital Signs: Vital signs: Vital Signs Temperature 97.9 F 02/02/23 07:35 Pulse Rate 89 02/02/23 07:35 Respiratory Rate 16 02/02/23 07:35 Blood Pressure 108/61 02/02/23 07:35 Pulse Oximetry 96 02/02/23 07:35 Oxygen Delivery Me thod Room Air 02/02/23 07:35 MDM - Abdominal Pain Medical Decision Making 32-year-old lady presenting to the emergency department with abdominal symptoms. Exam as above. Abdominal tenderness without evidence of acute surgical abdomen. Labs with minimal leukocytosis, normal hemoglobin and platelet count and metabolic panel with mild evidence of dehydration. Lactic acid is elevated with improvement on repeat. ALT is mildly elevated with normal T. bili. Negative hCG. Urinalysis with squamous epithelial contamination and no convincing evidence of UTI. Ultrasound demonstrates no acute biliary pathology. CT demonstrates appendicitis. Patient treated with fluids, analgesia, antiemetic and subsequently antibiotic went CT report returned. Most likely etiology of patient's symptoms is stump appendicitis as she previously had appendectomy. The results of ED evaluation were discussed with the patient including plan for admission due to requirement for level of care not available if discharged to prevent significant worsening/deterioration. Patient agreeable with plan. Discussed with surgery service who was agreeable to admit patient for operative management. Medical Records I reviewed the patient's medical records. Lab Data I reviewed the patient's lab results. 02/02/23 08:15 02/01/23 15:18 Labs/Radiology: Radiology Impressions Gallbladder Ultrasound 02/01/23 16:18 IMPRESSION: No acute findings. Abdomen/Pelvis CT 02/01/23 17:41 IMPRESSION: Findings consistent with acute appendicitis. No evidence of complication. ADDENDUM: 02/01/23 1850 ADDENDUM: Reportedly the patient has had a prior appendectomy. The inflamed structure in the right lower quadrant is a blind ending tubular structure which originates in the expected anatomic location of the appendix from the cecum. It is retrocecal in location similar to the previous CT. Correlate with prior operative findings. THIS REPORT CONTAINS FINDINGS THAT MAY BE CRITICAL TO PATIENT CARE. The findings were verbally communicated via telephone conference with Mg Mcguire at 6:49 PM CDT on 02/01/2023. The findings were acknowledged and understood. Laboratory Results WBC 11.0 10^3/uL (4.0-10.0) H 02/01/23 15:18 RBC 4.98 10^6/uL (4.1-5.3) 02/01/23 15:18 Hgb 13.8 g/dL (11.5-15.3) 02/01/23 15:18 Hct 41.1 % (37.0-47.0) 02/01/23 15:18 MCV 82.5 fl (81-99) 02/01/23 15:18 MCH 27.7 pg (28.0-34.0) L 02/01/23 15:18 MCHC 33.6 g/dL (30.0-36.0) 02/01/23 15:18 RDW 13.1 % (12.1-15.1) 02/01/23 15:18 Plt Count 374 10^3/cmm (130-400) 02/01/23 15:18 MPV 9.3 fL (7.4-10.4) 02/01/23 15:18 Neut % (Auto) 80.2 % 02/01/23 15:18 Lymph % (Auto) 13.8 % 02/01/23 15:18 [place] % (Auto) 4.7 % 02/01/23 15:18 Eos % (Auto) 0.8 % 02/01/23 15:18 Baso % (Auto) 0.2 % 02/01/23 15:18 Neut # (Auto) 8.82 10^3/uL (1.8-7.7) H 02/01/23 15:18 Lymph # (Auto) 1.5 10^3/uL (0.8-4.8) 02/01/23 15:18 [place] # (Auto) 0.5 10^3/uL (0.2-0.9) 02/01/23 15:18 Eos # (Auto) 0.1 10^3/uL (0.0-0.8) 02/01/23 15:18 Baso # (Auto) 0.0 10^3/uL (0.0-0.1) 02/01/23 15:18 Nucleated RBC % (auto) 0 % 02/01/23 15:18 Nucleated RBCs # 0.0 /100WBC 02/01/23 15:18 Sodium 137 mmol/L (136-145) 02/01/23 15:18 Potassium 3.7 mmol/L (3.5-5.1) 02/01/23 15:18 Chloride 103 mmol/L (98-107) 02/01/23 15:18 Carbon Dioxide 19 mmol/L (22-29) L 02/01/23 15:18 Anion Gap 18.7 (5-19) 02/01/23 15:18 BUN 9 mg/dL (6-20) 02/01/23 15:18 Creatinine 0.6 mg/dL (0.5-0.9) 02/01/23 15:18 GFR Calculation 115.1 mL/min (90-130) 02/01/23 15:18 Glucose 122 mg/dL (65-115) H 02/01/23 15:18 Calculated Osmolality 284 mOsm/kg (285-295) L 02/01/23 15:18 Lactic Acid 0.8 mmol/L (0.5-2.2) 02/01/23 18:20 Lactate 2.8 mmol/L (0.5-2.2) H 02/01/23 15:18 Calcium 9.1 mg/dL (8.5-10.5) 02/01/23 15:18 Total Bilirubin 0.7 mg/dL (0.15-1.2) 02/01/23 15:18 AST 32 U/L (0-32) 02/01/23 15:18 ALT 56 U/L (0-33) H 02/01/23 15:18 Alkaline Phosphatase 83 U/L (35-105) 02/01/23 15:18 Total Protein 7.7 g/dL (6.6-8.7) 02/01/23 15:18 Albumin 4.1 g/dL (3.5-5.2) 02/01/23 15:18 Globulin 3.6 g/dL (1.3-4.6) 02/01/23 15:18 Lipase 27 U/L (13-60) 02/01/23 15:18 HCG, Qual Negative (Negative) 02/01/23 15:18 Urine Color Yellow (Yellow) 02/01/23 15:20 Urine Appearance Clear (CLEAR) 02/01/23 15:20 Urine pH 9 (5-7) H 02/01/23 15:20 Ur Specific [place] 1.015 (1.005-1.030) 02/01/23 15:20 Urine Protein Neg (Negative) 02/01/23 15:20 Urine Glucose (UA) Norm (Normal) 02/01/23 15:20 Urine Ketones Negative (Negative) 02/01/23 15:20 Urine Blood Neg (Negative) 02/01/23 15:20 Urine Nitrate Negative (Negative) 02/01/23 15:20 Urine Bilirubin Neg (Negative) 02/01/23 15:20 Prot Sulfosalicylic Acd Negative (Negative) 02/01/23 15:20 Urine Urobilinogen Neg mg/dL (Negative) 02/01/23 15:20 Ur Leukocyte Esterase Trace (Negative) H 02/01/23 15:20 Urine RBC 0-4 /hpf (0-2) H 02/01/23 15:20 Urine WBC 5-10 /hpf (0-5) H 02/01/23 15:20 Ur Squamous Epith Cells 5-10 /hpf (0-5) H 02/01/23 15:20 Amorphous Sediment Not Reportable 02/01/23 15:20 Urine Bacteria 1+ /hpf (NONE) H 02/01/23 15:20 Urine Mucus Trace /hpf 02/01/23 15:20 Discharge Plan Discharge Patient Disposition: Admitted As Inpatient Admit Provider: Jemma Tinajero Clinical Impression: Acute appendicitis Condition: Stable Discharge Diet: Regular Discharge Activity: Limit activity as instructed Coding Level of Care Code ED Manager [employer] for Marielena Edwards
[2023-02-01 15:25] LABS: Basophils % 0.2 %; Eosinophils # 0.1 10^3/uL (0.0-0.8); Eosinophils % 0.8 %; Hematocrit 41.1 % (37.0-47.0); Hemoglobin 13.8 g/dL (11.5-15.3); Lymphocytes # 1.5 10^3/uL (0.8-4.8); Lymphocytes % 13.8 %; Mean Corpuscular HGB Conc 33.6 g/dL (30.0-36.0); Mean Corpuscular Hemoglobin 27.7 pg (28.0-34.0); Mean Corpuscular Volume 82.5 fl (81-99); Mean Platelet Volume 9.3 fL (7.4-10.4); Monocytes # 0.5 10^3/uL (0.2-0.9); Monocytes % 4.7 %; Neutrophils # 8.82 10^3/uL (1.8-7.7); Neutrophils % 80.2 %; Nucleated Red Blood Cells % 0 %; Platelet Count 374 10^3/cmm (130-400); Red Blood Count 4.98 10^6/uL (4.1-5.3); Red Cell Distribution Width 13.1 % (12.1-15.1)
[2023-02-01] MEDS: ondansetron 2 mg/ML SDV 2 mL 4 MG IVP ×2 (15:29→23:09)
[2023-02-01] MEDS: fentaNYL 50 mcg/mL INJ 2mL IVP (15:29)
[2023-02-01] MEDS: ketorolac 30 mg/mL INJ 15 MG IVP (15:29)
[2023-02-01] MEDS: sodium chloride 0.9% 500 ML IV (15:31)
[2023-02-01 15:51] LABS: HCG, Serum Qual Negative (Negative)
[2023-02-01 15:58] LABS: Alanine Aminotransferase 56 U/L (0-33); Albumin Level 4.1 g/dL (3.5-5.2); Alkaline Phosphatase 83 U/L (35-105); Anion Gap 18.7 (5-19); Aspartate Amino Transferase 32 U/L (0-32); Blood Urea Nitrogen 9 mg/dL (6-20); Calcium 9.1 mg/dL (8.5-10.5); Carbon Dioxide 19 mmol/L (22-29); Chloride 103 mmol/L (98-107); Globulin 3.6 g/dL (1.3-4.6); Glomerular Filtration Rate 115.1 mL/min (90-130); Glucose 122 mg/dL (65-115); Lipase 27 U/L (13-60); Osmolality Calculated 284 mOsm/kg (285-295); Potassium 3.7 mmol/L (3.5-5.1); Sodium 137 mmol/L (136-145); Total Bilirubin 0.7 mg/dL (0.15-1.2); Total Protein 7.7 g/dL (6.6-8.7)
[2023-02-01 15:59] LABS: Lactate (Lactic Acid level) 2.8 mmol/L (0.5-2.2)
[2023-02-01 16:06] LABS: Add Urine Microscopic? YES; Bilirubin Urine Neg (Negative); Blood Urine Neg (Negative); Glucose Urine UA Norm (Normal); Ketones Urine Negative (Negative); Leukocyte Esterase Urine Trace (Negative); Nitrate Urine Negative (Negative); Protein Urine Neg (Negative); Specific Gravity, Urine 1.015 (1.005-1.030); Sulfosalicylic Acid Urine Negative (Negative); Urine Appearance Clear (CLEAR); Urine Color Yellow (Yellow); Urobilinogen Urine Neg (Negative); pH Urine 9 (5-7)
[2023-02-01 16:08] LABS: Add Urine Culture? No; Bacteria Urine 1+ /hpf; Mucus Urine TRACE /hpf; RBC Urine 0-4 /hpf (0-2)
--- NOTE | 2023-02-01 16:18 | USR_ITS ---
PROCEDURE INFORMATION: Exam: US Abdomen, Limited; Right Upper Quadrant Exam date and time: 02/01/2023 5:06 PM Age: 32 years old Clinical indication: Abdominal tenderness and nausea; Additional info: Ruq/flank pain, mild elevated alt TECHNIQUE: Imaging protocol: Real time ultrasound of the abdomen with image documentation. Limited exam focused on the right upper quadrant. COMPARISON: CT abdomen pelvis con [id number] 06/23/2022 11:59 PM FINDINGS: Liver: Normal. No masses. Gallbladder: Normal. No gallstones. There is no gallbladder wall thickening. Biliary ducts: Normal. No stones. No dilation. Pancreas: Visualized pancreas is unremarkable. Right kidney: Normal. No mass. No hydronephrosis. US/US gall bladder [id number] IMPRESSION: No acute findings.
[2023-02-01] MEDS: sodium chloride 0.9% 1,000 ML 999 ML IV (16:39)
--- NOTE | 2023-02-01 17:41 | CTR_ITS ---
PROCEDURE INFORMATION: Exam: CT Abdomen And Pelvis With Contrast Exam date and time: 02/01/2023 5:57 PM Age: 32 years old Clinical indication: Abdominal pain; Localized; Right upper quadrant (ruq); Prior surgery; Surgery type: C-sec; Additional info: Ruq, R flank pain TECHNIQUE: Imaging protocol: Computed tomography of the abdomen and pelvis with contrast. Radiation optimization: All CT scans at this facility use at least one of these dose optimization techniques: automated exposure control; mA and/or kV adjustment per patient size (includes targeted exams where dose is matched to clinical indication); or iterative reconstruction. Contrast material: OMNI 350; Contrast volume: 100 ml; Contrast route: INTRAVENOUS (IV); REPORTING DATA: Count of CT and Cardiac NM exams in prior 12 months: This patient has received [address] and 0 known cardiac nuclear medicine studies in the 12 months prior to the current study. COMPARISON: CT abdomen pelvis wo con [id number] 06/23/2022 11:59 PM RADIATION DOSE METRICS: Total DLP (mGy-cm): 684.73 FINDINGS: Liver: Normal. No mass. Gallbladder and bile ducts: Normal. No calcified stones. No ductal dilation. Pancreas: Normal. No ductal dilation. Spleen: Normal. No splenomegaly. Adrenal glands: Normal. No mass. Kidneys and ureters: Normal. No hydronephrosis. Stomach and bowel: Unremarkable. No obstruction. No mucosal thickening. Appendix: The appendix is enlarged measuring 1.5 cm with wall thickening and adjacent inflammatory stranding/fluid in the right lower quadrant mesentery. This does not form a drainable collection or abscess. Intraperitoneal space: Unremarkable. No free air. No significant fluid collection. Vasculature: Unremarkable. No abdominal aortic aneurysm. Lymph nodes: Unremarkable. No enlarged lymph nodes. Urinary bladder: Unremarkable as visualized. Reproductive: Unremarkable as visualized. Bones/joints: Unremarkable. No acute fracture. Soft tissues: Unremarkable. Other findings: Diastasis of the rectus muscles. CT/CT abdomen pelvis w con* [id number] IMPRESSION: Findings consistent with acute appendicitis. No evidence of complication.
[2023-02-01] MEDS: iohexol 350 mg/mL 500 mL Btl (per mL) IV (18:06)
[2023-02-01 18:50] LABS: Lactic Sepsis W/Reflex 0.8 mmol/L (0.5-2.2)
[2023-02-01] MEDS: piperacillin-tazobactam 4.5 GM in sodium chloride 0.9% (plus) 50 ML IV (19:20)
--- NOTE | 2023-02-01 19:50 | P.HP_ITS ---
Providers/Chief Complaint Admitting Physician: Lior Primary Care Provider: ELSIE Palmer Chief Complaint: abd pains, radiating pain into back History of Present Illness Kitty Cunningham is a 32 year old female who presents with a 4 to 5-hour history of abdominal pain. The pain started the patient's right upper quadrant. The patient states that this pain was very similar to the pain that she had when she had acute appendicitis several months ago. The patient underwent a laparoscopic appendectomy at that time. We explained the pathology showing the patient did have removal of the appendix. The patient underwent a CT scan of her abdomen and pelvis in the emergency room. This is consistent with acute appendicitis. I reviewed the CT scan. The patient clearly has an inflamed appendix which seems to be coming off the cecum. The rest of the CT scan of the patient's abdomen and pelvis appears to be normal to me. The patient had 1 episode of emesis. Nothing she does makes the pain better. The patient has received Toradol IV fluids and Zosyn in the emergency room. The patient states that she is feeling pretty good at this time. Review of Systems General: Reports: 10 or more systems reviewed and unremarkable except in HPI and below Medications/Allergies Home Medications Medication Instructions Recorded Confirmed Last Taken Type levothyroxine 125 mcg tablet 250 mcg PO DAILY 06/24/22 02/01/23 01/31/23 History (Euthyrox) ibuprofen 800 mg tablet 800 mg PO TID PRN Pain 02/01/23 02/01/23 Unknown History multivitamin-iron 27 mg-folic acid 1 tab PO DAILY 02/01/23 02/01/23 01/31/23 History 400 mcg-calcium and minerals tablet Allergies Allergy/AdvReac Type Severity Reaction Status Date / Time No Known Allergies Allergy Verified 02/01/23 15:58 PFSH Acute PFSH: Medical History Darryl's disease Hypothyroidism PCOS (polycystic ovarian syndrome) Surgical History History of tonsillectomy Status post appendectomy Family History Brother Diabetes Cancer brain seizures Social History Smoking and tobacco status: never smoked Alcohol intake: never Adopted: No Caregiver/support person: No Lives independently: No Household members: spouse Marital status: Current occupational status: employed Sexually active: Yes Current gender identity: Female Vitals/I&O/Wt Last Vital Signs Temp 97.5 F L 02/01/23 14:58 Pulse 77 02/01/23 19:11 Resp 16 02/01/23 19:11 BP 131/98 02/01/23 19:11 Pulse Ox 100 02/01/23 19:11 O2 Del Method 02/01/23 19:11 02/01/23 02/01/23 02/01/23 06:59 14:59 22:59 Intake Total 500 / 500 Balance 500 / 500 Weight last 48 hrs Weight 166 lb Physical Exam Narrative: Generally: No acute distress HEENT: Normocephalic atraumatic, pupils equal round reactive to light Neck: Free range of motion and nontender. The patient has no thyromegaly. There is no masses that I can appreciate Lungs: Clear to auscultation Heart: Is regular rate and rhythm without murmurs. There is no S3 or S4. Abdomen: Somewhat obese, she has some right-sided tenderness. Is not really in the right lower quadrant it is kind of between the right upper and right lower quadrants. I do not appreciate a rebound. Extremities: There is no obvious deformities or point tenderness suggestive of a fracture. The patient has no clubbing cyanosis or edema Neurologic: The patient is awake, alert, oriented x3. The patient's [place] Coma Scale is 15. The patient moves all 4 extremities without difficulty. The patient sensations intact to light touch throughout. Data 02/01/23 15:18 02/01/23 15:18 Attestation for Other Data: I personally reviewed and interpreted the following: (I reviewed the patient's CT scans as well as the labs that were performed today.) A&P Assessment and plan (1) Acute appendicitis: We will admit the patient to the surgery service. We will schedule the patient for laparoscopic appendectomy. I spent a good deal of time talking with her and her . I believe the patient only had part of her appendix removed the first time. I told her I think we should be able to get the appendix out through the scope this time. There is no evidence of perforation. The risk and benefits of this operation been explained to the patient. The patient seems to understand the risk and benefits would like to proceed. Attestations Medical Necessity Statement*: Acute appendicitis Coding Level of Care Code 09012 Diagnoses Acute appendicitis K35.80
--- NOTE | 2023-02-01 20:26 | P.ANESASSM_ITS ---
Pre-Anesthetic Assessment Height/Weight: Height 1.52 m Weight 75.296 kg Temp Pulse Resp BP Pulse Ox O2 Del Method 97.5 F L 77 16 131/98 100 02/01/23 14:58 02/01/23 19:11 02/01/23 19:11 02/01/23 19:11 02/01/23 19:11 02/01/23 19:11 Preop Diagnosis: acute appendicitis Was Beta Beth taken within 24 hours: N/A Was Clonidine taken within 24 hours: N/A Social No alcohol and No tobacco Exam alert, oriented x 3, clear to auscultation bilaterally and regular rate & rhythm Airway Submandibular: within normal limits Cervical ROM: within normal limits Mallampati: Class II History/ROS No significant history except as noted Metabolic Thyroid Disease (hypothyroid) Neuropsych Anxiety and Depression Anesthetic Plan ASA status: 2E (Disc with Dr Tinajero; he indicated that he would like to proceed urgently with the intervention) Anesthesia: General Risk of > 500 ml blood loss (7ml/kg in children): No Medications/Allergies Home Medications Medication Instructions Recorded Confirmed Last Taken Type levothyroxine 125 mcg tablet 250 mcg PO DAILY 06/24/22 02/01/23 01/31/23 History (Euthyrox) ibuprofen 800 mg tablet 800 mg PO TID PRN Pain 02/01/23 02/01/23 Unknown History multivitamin-iron 27 mg-folic acid 1 tab PO DAILY 02/01/23 02/01/23 01/31/23 History 400 mcg-calcium and minerals tablet Allergies Allergy/AdvReac Type Severity Reaction Status Date / Time No Known Allergies Allergy Verified 02/01/23 15:58 [facility] Anesthesia Medical History Darryl's disease Hypothyroidism PCOS (polycystic ovarian syndrome) Surgical History History of tonsillectomy Status post appendectomy Family History Brother Diabetes Cancer brain seizures Social History Smoking and tobacco status: never smoked Alcohol intake: never Adopted: No Caregiver/support person: No Lives independently: No Household members: spouse Marital status: Current occupational status: employed Sexually active: Yes Current gender identity: Female Data Anesthesia 02/01/23 15:18 02/01/23 15:18 Short CBC 02/01/23 Range/Units 15:18 WBC 11.0 H (4.0-10.0) 10^3/uL Hgb 13.8 (11.5-15.3) g/dL Hct 41.1 (37.0-47.0) % MCV 82.5 (81-99) fl Plt Count 374 (130-400) 10^3/cmm Neut % (Auto) 80.2 % Neut # (Auto) 8.82 H (1.8-7.7) 10^3/uL BMP 02/01/23 15:18 Sodium 137 Potassium 3.7 Chloride 103 Carbon Dioxide 19 L BUN 9 Creatinine 0.6 Glucose 122 H Calcium 9.1 Liver Function 02/01/23 Range/Units 15:18 Total Bilirubin 0.7 (0.15-1.2) mg/dL AST 32 (0-32) U/L ALT 56 H (0-33) U/L Alkaline Phosphatase 83 (35-105) U/L Albumin 4.1 (3.5-5.2) g/dL Urine 02/01/23 Range/Units 15:20 Urine Color Yellow (Yellow) Urine Appearance Clear (CLEAR) Urine pH 9 H (5-7) Ur Specific [place] 1.015 (1.005-1.030) Urine Protein Neg (Negative) Urine Glucose (UA) Norm (Normal) Urine Ketones Negative (Negative) Urine Nitrate Negative (Negative) Urine Bilirubin Neg (Negative) Ur Leukocyte Esterase Trace H (Negative) Urine RBC 0-4 H (0-2) /hpf Urine WBC 5-10 H (0-5) /hpf Cardiac Studies: No Data to Display
--- NOTE | 2023-02-01 22:10 | P.OP_ITS ---
Operative Report Date of procedure: February 01, 2023 Pre-op diagnosis: acute appendicitis Post-op diagnosis: same Post-op findings: Acute, suppurative, appendicitis. Nonperforated. Procedure done: Laparoscopic appendectomy Specimens removed/disposition: Appendix Surgeon: Jemma Tinajero Anesthesia: General Complications: None Findings: Acute, suppurative appendicitis. Nonperforated. The appendiceal stump was flush with the cecum at the completion of the case. The appendix was approximately 2 to 3 cm in length. Condition: stable Disposition: PACU Brief History: This is a 32-year-old female who presents the emergency room with a 6-hour history of abdominal pain. The patient's white blood cell count was slightly elevated at approximate 11. She underwent a CT scan of the abdomen pelvis which showed inflammation of the appendix. Interestingly, the patient underwent laparoscopic appendectomy approximately 6 months ago. So this appears to be stump appendicitis. The risk and benefits of laparoscopic appendectomy were carefully explained to the patient. The patient seemed understand these risk and benefits and wanted to proceed. Procedure: Procedure in detail: The patient was brought to the operative room placed in supine position. After adequate general endotracheal anesthesia, the patient was prepped and draped in usual sterile fashion. Following this a timeout was performed. The patient identifiers as well as the goals procedure were discussed and everyone in the room agreed. Because the patient had a previous laparoscopic procedure I decided to insufflate the abdomen with using a varies needle in the left upper quadrant. The patient was insufflated to 15 mmHg. Following this the patient did not have a port in her left lower quadrant because of this I thought he is in the left lower quadrant as my entry port would probably be the safest and therefore an incision was made in the left lower quadrant following this a 12 mm port was placed through this incision into the abdomen without difficulty. The scope was placed through this incision I was able to look in the abdomen. The patient had some turbid fluid in the right lower quadrant. I can see the varies needle. The peritoneal was removed. Now a curvilinear incision was made at the superior aspect of the umbilicus. Interestingly, there was no adhesions to the umbili cus. So therefore through this incision I was able to use a hemostat to dissect down to the fascia and then I was able to enter the abdomen using a 12 mm port. The camera was transferred to this port. Finally an incision was made in the right lower quadrant just above the symphysis pubis and through this incision I placed a 5 mm port and this was done under direct vision. The patient was now p laced in Trendelenburg and rolled with the left side down in order for the bowels to follow a from the right lower quadrant. The cecum was easily identified. I was easily able to see the terminal ileum which was normal. And then I was able to pull up the inflamed appendix. This was no more than 2 to 3 cm in length. A window was created in the mesoappendix. There was a modest amount of bleeding when I created this window. I did not see any arterial bleeding. Through this window I placed a PEPE stapler with a blue load. I fired this across the base of the appendix therefore amputating th e appendix. Now using a [place] I was able to hold the appendix up in place and then come across the mesoappendix with a PEPE stapler, a white load. This amputated the appendix and the appendix was now placed in an Endobag. The patient was now flattened out the blood was suctioned out of the abdomen. Approximately 15 to 20 cc. I carefully looked at the appendiceal stump. It was flush with the cecum. I carefully looked at the mesoappendix. There was no bleeding. Because of this the appendix and the Endobag were pulled out of the left lower quadrant incision the port was removed at the same time. The appendix was now handed off the field. The 5 mm port was now removed. There is no bleeding from the port side. Then finally the umbilical port was removed. I allowed the abdomen to deflate before removing. 0 Vicryl was now used to reapproximate the fascia in both the umbilical and the left lower quadrant incisions. Following this 4-0 Monocryl was used in a subcuticular fashion to close all 3 wounds. Dermabond was now applied. The patient was awakened and taken recovery room in stable condition. Following the procedure I spoke with the patient's . I explained the above findings. All questions were addressed.
--- NOTE | 2023-02-01 22:18 | ANE.PACU2 ---
Inpatient post-anesthesia follow up: Vital signs: Temperature 97.2 F Pulse Rate 74 Respiratory Rate 16 Blood Pressure 119/78 Pulse Oximetry 97 Oxygen Delivery Me thod Room Air Oxygen Flow Rate Fraction of Inspir ed Oxygen Hydration adequate: Yes Nausea and vomiting: No Pain level: 2 Mental status: Baseline
[2023-02-01] MEDS: morphine 4 mg/mL SDV 1 mL 2 MG IVP (23:09)
[2023-02-01] MEDS: piperacillin-tazobactam 3.375 GM in sodium chloride 0.9% (plus) 50 ML IV (23:10)
[2023-02-01] MEDS: sodium chloride 0.9% 1,000 ML 75 ML IV (23:12)
[2023-02-02] VITALS: BP 108/71; PULSE 72; RESP 18; TEMP 36.7; O2SAT 97
[2023-02-02] MEDS: famotidine 20 mg/2 mL INJ IVP (00:19)
[2023-02-02 00:54] VITALS: BP 115/56; PULSE 79; RESP 18; TEMP 36.9; O2SAT 97
[2023-02-02 01:56] VITALS: BP 106/65; PULSE 72; RESP 18; TEMP 36.6; O2SAT 97
[2023-02-02 03:23] VITALS: BP 114/74; PULSE 89; RESP 16; TEMP 36.6; O2SAT 98
[2023-02-02] MEDS: acetaminophen 325 mg Tablet 650 MG PO ×2 (03:29→09:35)
[2023-02-02 05:47] VITALS: BP 92/56; PULSE 65; RESP 16; O2SAT 96
[2023-02-02 07:35] VITALS: BP 108/61; PULSE 89; RESP 16; TEMP 36.6; O2SAT 96
[2023-02-02 08:36] LABS: Basophils % 0.1 %; Hematocrit 39.7 % (37.0-47.0); Hemoglobin 12.9 g/dL (11.5-15.3); Lymphocytes # 0.9 10^3/uL (0.8-4.8); Lymphocytes % 9.3 %; Mean Corpuscular HGB Conc 32.5 g/dL (30.0-36.0); Mean Corpuscular Hemoglobin 28.2 pg (28.0-34.0); Mean Corpuscular Volume 86.7 fl (81-99); Mean Platelet Volume 9.6 fL (7.4-10.4); Monocytes # 0.2 10^3/uL (0.2-0.9); Monocytes % 1.8 %; Neutrophils # 8.95 10^3/uL (1.8-7.7); Neutrophils % 88.6 %; Nucleated Red Blood Cells % 0 %; Platelet Count 362 10^3/cmm (130-400); Red Blood Count 4.58 10^6/uL (4.1-5.3); Red Cell Distribution Width 13.5 % (12.1-15.1); White Blood Count 10.1 10^3/uL (4.0-10.0)
[2023-02-02] MEDS: docusate sodium 100 mg Capsule PO (09:35)
--- NOTE | 2023-02-02 10:50 | P.DS_ITS ---
Discharge Providers Date of Admission: 02/01/23 22:00 Date of Discharge: February 02, 2023 Attending Provider at Admission: Jemma Tinajero MD Attending Provider at Discharge: Jemma Tinajero MD Primary Care Provider: ELSIE Palmre Diagnoses at Discharge Discharge Diagnosis (1) Acute appendicitis: Details from hospital stay: Is a 32-year-old female who presented with approximately 6-hour history of abdominal pain. The patient underwent a CT scan of her abdomen and pelvis in the emergency room. Patient is found to have acute appendicitis. Interestingly, the patient underwent an appendectomy approximate 6 months earlier. So this appears to be stump appendicitis. The risk and benefits of procedure were explained to the patient the patient underwent a laparoscopic appendectomy without difficulty. Postoperatively, the patient is doing well. She is taking Tylenol for pain. I believe patient is okay for discharge at this time. Status: Acute Reason for Visit Reason for Visit: abd pains, radiating pain into back Brief History: 32-year-old female presented with signs and symptoms of acute appendicitis. Hospital Course Hospital Course The patient underwent laparoscopic appendectomy without difficulty. Postoperatively the patient is done well. She is tolerating regular diet. She is ambulated without assistance. She is ready for discharge at this time. Physical Exam Narrative: Abdomen: Soft, nondistended, the patient does have some surgical tenderness around her incisions. The patient's incisions are clean and dry. There is no evidence of infection. Discharge Data Studies Completed and Pending Completed Studies During Hospitalization Category Date Time Status CT abdomen pelvis w con* [id number] Stat Cat Scan 02/01/23 17:41 Completed US gall bladder [id number] Stat Ultrasound 02/01/23 16:18 Completed Pending at discharge Category Date Time Status Blood Culture Stat Lab 02/01/23 20:40 Results Pathology: Surgical [PTH] Routine Pth 02/01/23 22:15 Ordered Radiology Impressions Gallbladder Ultrasound 02/01/23 16:18 IMPRESSION: No acute findings. Abdomen/Pelvis CT 02/01/23 17:41 IMPRESSION: Findings consistent with acute appendicitis. No evidence of complication. ADDENDUM: 02/01/23 [id number] ADDENDUM: Reportedly the patient has had a prior appendectomy. The inflamed structure in the right lower quadrant is a blind ending tubular structure which originates in the expected anatomic location of the appendix from the cecum. It is retrocecal in location similar to the previous CT. Correlate with prior operative findings. THIS REPORT CONTAINS FINDINGS THAT MAY BE CRITICAL TO PATIENT CARE. The findings were verbally communicated via telephone conference with Mg Mcguire at 6:49 PM T on 02/01/2023. The findings were acknowledged and understood. Laboratory Results WBC 10.1 10^3/uL (4.0-10.0) H 02/02/23 08:15 Corrected WBC Cancelled 02/02/23 05:00 RBC 4.58 10^6/uL (4.1-5.3) 02/02/23 08:15 Hgb 12.9 g/dL (11.5-15.3) 02/02/23 08:15 Hct 39.7 % (37.0-47.0) 02/02/23 08:15 MCV 86.7 fl (81-99) D 02/02/23 08:15 MCH 28.2 pg (28.0-34.0) 02/02/23 08:15 MCHC 32.5 g/dL (30.0-36.0) 02/02/23 08:15 RDW 13.5 % (12.1-15.1) 02/02/23 08:15 Plt Count 362 10^3/cmm (130-400) 02/02/23 08:15 MPV 9.6 fL (7.4-10.4) 02/02/23 08:15 Gran % Cancelled 02/02/23 05:00 Neut % (Auto) 88.6 % 02/02/23 08:15 Lymph % (Auto) 9.3 % 02/02/23 08:15 [place] % (Auto) 1.8 % 02/02/23 08:15 Eos % (Auto) 0.0 % 02/02/23 08:15 Baso % (Auto) 0.1 % 02/02/23 08:15 Neut # (Auto) 8.95 10^3/uL (1.8-7.7) H 02/02/23 08:15 Lymph # (Auto) 0.9 10^3/uL (0.8-4.8) 02/02/23 08:15 [place] # (Auto) 0.2 10^3/uL (0.2-0.9) 02/02/23 08:15 Eos # (Auto) 0.0 10^3/uL (0.0-0.8) 02/02/23 08:15 Baso # (Auto) 0.0 10^3/uL (0.0-0.1) 02/02/23 08:15 Absolute Gran (auto) Cancelled 02/02/23 05:00 Nucleated RBC % (auto) 0 % 02/02/23 08:15 Nucleated RBCs # 0.0 /100WBC 02/02/23 08:15 Sodium 137 mmol/L (136-145) 02/01/23 15:18 Potassium 3.7 mmol/L (3.5-5.1) 02/01/23 15:18 Chloride 103 mmol/L (98-107) 02/01/23 15:18 Carbon Dioxide 19 mmol/L (22-29) L 02/01/23 15:18 Anion Gap 18.7 (5-19) 02/01/23 15:18 BUN 9 mg/dL (6-20) 02/01/23 15:18 Creatinine 0.6 mg/dL (0.5-0.9) 02/01/23 15:18 GFR Calculation 115.1 mL/min (90-130) 02/01/23 15:18 Glucose 122 mg/dL (65-115) H 02/01/23 15:18 Calculated Osmolality 284 mOsm/kg (285-295) L 02/01/23 15:18 Lactic Acid 0.8 mmol/L (0.5-2.2) 02/01/23 18:20 Lactate 2.8 mmol/L (0.5-2.2) H 02/01/23 15:18 Calcium 9.1 mg/dL (8.5-10.5) 02/01/23 15:18 Total Bilirubin 0.7 mg/dL (0.15-1.2) 02/01/23 15:18 AST 32 U/L (0-32) 02/01/23 15:18 ALT 56 U/L (0-33) H 02/01/23 15:18 Alkaline Phosphatase 83 U/L (35-105) 02/01/23 15:18 Total Protein 7.7 g/dL (6.6-8.7) 02/01/23 15:18 Albumin 4.1 g/dL (3.5-5.2) 02/01/23 15:18 Globulin 3.6 g/dL (1.3-4.6) 02/01/23 15:18 Lipase 27 U/L (13-60) 02/01/23 15:18 HCG, Qual Negative (Negative) 02/01/23 15:18 Urine Color Yellow (Yellow) 02/01/23 15:20 Urine Appearance Clear (CLEAR) 02/01/23 15:20 Urine pH 9 (5-7) H 02/01/23 15:20 Ur Specific [place] 1.015 (1.005-1.030) 02/01/23 15:20 Urine Protein Neg (Negative) 02/01/23 15:20 Urine Glucose (UA) Norm (Normal) 02/01/23 15:20 Urine Ketones Negative (Negative) 02/01/23 15:20 Urine Blood Neg (Negative) 02/01/23 15:20 Urine Nitrate Negative (Negative) 02/01/23 15:20 Urine Bilirubin Neg (Negative) 02/01/23 15:20 Prot Sulfosalicylic Acd Negative (Negative) 02/01/23 15:20 Urine Urobilinogen Neg mg/dL (Negative) 02/01/23 15:20 Ur Leukocyte Esterase Trace (Negative) H 02/01/23 15:20 Urine RBC 0-4 /hpf (0-2) H 02/01/23 15:20 Urine WBC 5-10 /hpf (0-5) H 02/01/23 15:20 Ur Squamous Epith Cells 5-10 /hpf (0-5) H 02/01/23 15:20 Amorphous Sediment Not Reportable 02/01/23 15:20 Urine Bacteria 1+ /hpf (NONE) H 02/01/23 15:20 Urine Mucus Trace /hpf 02/01/23 15:20 Vitals Last Vital Signs Temp 97.9 F 02/02/23 07:35 Pulse 89 02/02/23 07:35 Resp 16 02/02/23 07:35 BP 108/61 02/02/23 07:35 Pulse Ox 96 02/02/23 07:35 O2 Del Method 02/02/23 07:35 Discharge Plan Discharge Patient Disposition: Home Condition: Stable Prescriptions: Changed ibuprofen 800 mg tablet 800 mg PO TID PRN (Reason: Pain) 10 Days Qty: 30 0RF No Action levothyroxine [Euthyrox] 125 mcg tablet 250 mcg PO DAILY Women's Daily Caplet 27 mg iron-400 mcg Tablet 1 tab PO DAILY Discharge Orders: Discharge Order (Routine); Ordered 02/02/23 Ordered By: Jemma Tinajero Referrals: Catalina Kline, ELSIE [Primary Care Provider] - Ravin Rivera DO [Physician] - 7-10 days (s/p lap appy. wound check) Discharge Diet: Regular Discharge Activity: Limit activity as instructed Patient Instructions: Opioid Safety Activity Restrictions/Additional Instructions: No heavy lifting greater than 10 pounds for the first week. May take showers. (Must dry wounds completely after showers) no baths for the first week. Discharge Attestations Time Spent in Discharge Care*: less than 30 min Quality Metrics Clinical Quality Measures [ No reported AMI, CVA or VTE this stay] Coding Level of Care Code 69038 Diagnoses Acute appendicitis K35.80
== END 2023-02-02 12:11 | disposition home or self-care (01) ==
LOC: ER 15:03 → OR 19:50 → MEDSURG 22:00
PROVIDERS: Admitting Provider Surgery Surgical Critical Care; Emergency Provider Emergency Medicine; PCP Registered Nurse; Visit Provider Surgery Surgical Critical Care
PROC: 0DTJ4ZZ Resection of Appendix, Percutaneous Endoscopic Approach (ICD-10-PCS; CPT 44970; principal; 2023-02-01 20:30)
DX: K36 Other appendicitis (principal); E03.9 Hypothyroidism, unspecified
CPT/HCPCS: 44979; 36415; 74177; 76705; 80053; 81001; 83605; 83690; 84703; 85025; 87040; 88304; 96365; 96375; 99285; G0378; J0330; J1100; J1885; J2270; J2405; J2543; J2704; J2710; J3010; J3490; J7030; J7040; Q9967

== ENCOUNTER 2023-05-31 11:34 | Emergency (ER) | payer BC, SELFPAY ==
[2023-05-31 11:36] VITALS: BP 128/86; PULSE 75; RESP 20; TEMP 36.7; O2SAT 99; BMI 34.3
--- NOTE | 2023-05-31 11:42 | XR_ITS ---
WS: [id number] Portable AP upright chest, 05/31/2023 Clinical Data: chest pain Comparison: None. Findings: No nodules, masses or effusions are seen. The heart is normal. The pulmonary vascularity is not increased. No pneumonia or pneumothorax is seen. There are monitor leads on the chest and abdomi nal wall. The right fourth rib is hypoplastic. XR/XR chest 1V portable [id number] Impression: Negative chest.
--- NOTE | 2023-05-31 12:01 | ED_ITS ---
Documented by User: Anuel Montano DO 06/09/23 06:56 HPI - Chest Pain General: Chief Complaint: Chest Pain Stated Complaint: CP Time Seen by Provider: 05/31/23 11:42 Source: patient Mode of arrival: ambulatory History of Present Illness: 32-year-old female presents to the emergency room with complaint of substernal chest pain. She recently had a root canal is complaining of jaw discomfort. Sh malaika feels like her food is going down slowly like it is getting caught in her throat. She describes chest pain right side of her chest radiating to her shoulders. No fever sweats or chills no productive cough MD complaint: chest pain Timing of current episode: episodic Pain location: right chest Pain radiation: right arm and right shoulder Severity: moderate Quality: aching Relieving factors: nothing Exacerbating factors: eating Associated symptoms: Deny abdominal pain, diaphoresis, dyspnea, fever(s), leg edema, nausea, palpitations, sense of impending doom, syncope or vomiting Treatment prior to arrival: none Review of Systems Const: Denies: fever(s), chills, fatigue, malaise or diaphoresis ENMT: Denies: throat pain, ear or mastoid pain, nasal discharge or nasal congestion Card: Reports: chest pain; Denies: palpitations, irregular heart rhythm, edema, swelling of feet/ankles or syncope Resp: Denies: dyspnea GI: Denies: abdominal pain, nausea or vomiting : Denies: flank pain, difficulty voiding, dysuria, urinary frequency or urinary urgency Skin/Breast: Denies: rash or pruritus PFSH ED PFSH: Medical History Darryl's disease Hypothyroidism PCOS (polycystic ovarian syndrome) Surgical History History of tonsillectomy Status post appendectomy Family History Brother Diabetes Cancer brain seizures Social History Smoking and tobacco status: never smoked Alcohol intake: never Substance/Drug Use: never Adopted: No Caregiver/support person: No Lives independently: No Household members: spouse Marital status: Current occupational status: employed Sexually active: Yes Do you think of yourself as: Straight/Heterosexual Current gender identity: Female Physical Exam Const: GENERAL APPEARANCE: cooperative and comfortable ORIENTATION/CONSCIOUSNESS: Yes awake, Yes oriented to person, Yes oriented to place and Yes oriented to time HENMT: COMMON NORMALS: normocephalic, atraumatic and hearing grossly normal bilaterally HEAD & SCALP: normocephalic and atraumatic Resp: COMMON NORMALS: normal respiratory effort, No retractions, No use of accessory muscles and clear to auscultation bilaterally AUSCULTATION: clear to auscultation bilaterally Cardio: COMMON NORMALS: regular rate, regular rhythm and No murmurs present (Cardio) RATE: regular rate RHYTHM: regular rhythm GI: COMMON NORMALS: Soft to palpation and No hepatosplenomegaly present AUSCULTATION: Yes normoactive bowel sounds PALPATION: Yes Soft to palpation, No Tenderness to palpation present (GI), No Guarding due to palpation present (GI) and Yes No hepatosplenomegaly present Extremity: COMMON NORMALS: normal to inspection, capillary refill normal, no clubbing, cyanosis or edema, no calf tenderness and no pedal edema Neuro: SENSORIUM/ORIENTATION: Yes oriented to person, Yes oriented to place and Yes oriented to time Skin: COMMON NORMALS: no rashes or lesions noted GENERAL SKIN EXAM: no rashes or lesions noted Course Vital Signs: Vital signs: Vital Signs Temperature 98.1 F 05/31/23 11:36 Pulse Rate 83 05/31/23 12:27 Respiratory Rate 21 H 05/31/23 12:27 Blood Pressure 116/77 05/31/23 12:27 Pulse Oximetry 99 05/31/23 12:27 Oxygen Delivery Me thod Room Air 05/31/23 12:27 MDM - Chest Pain Medical Decision Making Care signed out to Dr. Starr at change of shift. See final notes for diagnosis and disposition. Patient presents with chest pains atypical in nature could be a reflux or esophageal spasms her troponin EKG x-ray are all normal we will place her on Protonix she is stable for discharge she is to follow-up with PCP and return if worsening. Lab Data 05/31/23 11:55 05/31/23 11:55 Radiology Impressions Chest X-Ray 05/31/23 11:42 Impression: Negative chest. Laboratory Results WBC 8.9 10^3/uL (4.0-10.0) 05/31/23 11:55 RBC 4.48 10^6/uL (4.1-5.3) 05/31/23 11:55 Hgb 12.6 g/dL (11.5-15.3) 05/31/23 11:55 Hct 39.1 % (37.0-47.0) 05/31/23 11:55 MCV 87.3 fl (81-99) 05/31/23 11:55 MCH 28.1 pg (28.0-34.0) 05/31/23 11:55 MCHC 32.2 g/dL (30.0-36.0) 05/31/23 11:55 RDW 13.8 % (12.1-15.1) 05/31/23 11:55 Plt Count 358 10^3/cmm (130-400) 05/31/23 11:55 MPV 9.3 fL (7.4-10.4) 05/31/23 11:55 Neut % (Auto) 78.3 % 05/31/23 11:55 Lymph % (Auto) 13.9 % 05/31/23 11:55 [place] % (Auto) 5.3 % 05/31/23 11:55 Eos % (Auto) 2.1 % 05/31/23 11:55 Baso % (Auto) 0.1 % 05/31/23 11:55 Neut # (Auto) 6.96 10^3/uL (1.8-7.7) 05/31/23 11:55 Lymph # (Auto) 1.2 10^3/uL (0.8-4.8) 05/31/23 11:55 [place] # (Auto) 0.5 10^3/uL (0.2-0.9) 05/31/23 11:55 Eos # (Auto) 0.2 10^3/uL (0.0-0.8) 05/31/23 11:55 Baso # (Auto) 0.0 10^3/uL (0.0-0.1) 05/31/23 11:55 Nucleated RBC % (auto) 0 % 05/31/23 11:55 Nucleated RBCs # 0.0 /100WBC 05/31/23 11:55 D-Dimer 0.30 ug/mIFEU (0-0.59) 05/31/23 11:55 Sodium 138 mmol/L (136-145) 05/31/23 11:55 Potassium 4.3 mmol/L (3.5-5.1) 05/31/23 11:55 Chloride 105 mmol/L (98-107) 05/31/23 11:55 Carbon Dioxide 23 mmol/L (22-29) 05/31/23 11:55 Anion Gap 14.3 (5-19) 05/31/23 11:55 BUN 11 mg/dL (6-20) 05/31/23 11:55 Creatinine 0.8 mg/dL (0.5-0.9) 05/31/23 11:55 GFR Calculation 82.6 mL/min (90-130) L 05/31/23 11:55 Glucose 68 mg/dL (65-115) 05/31/23 11:55 Calculated Osmolality 284 mOsm/kg (285-295) L 05/31/23 11:55 Calcium 9.1 mg/dL (8.5-10.5) 05/31/23 11:55 Total Bilirubin 0.8 mg/dL (0.15-1.2) 05/31/23 11:55 AST 19 U/L (0-32) 05/31/23 11:55 ALT 17 U/L (0-33) 05/31/23 11:55 Alkaline Phosphatase 91 U/L (35-105) 05/31/23 11:55 Troponin T Baseline 6 ng/L (0-10) 05/31/23 11:55 Total Protein 7.1 g/dL (6.6-8.7) 05/31/23 11:55 Albumin 4.4 g/dL (3.5-5.2) 05/31/23 11:55 Globulin 2.7 g/dL (1.3-4.6) 05/31/23 11:55 Discharge Plan Discharge Patient Disposition: Home Clinical Impression: Chest pain Condition: Stable Prescriptions: New Protonix 40 mg tablet,delayed release (DR/EC) 40 mg PO DAILY Qty: 60 0RF No Action levothyroxine [Euthyrox] 125 mcg tablet 250 mcg PO DAILY clindamycin HCl 300 mg capsule 300 mg PO QID Rx Instructions: TAKE 2 CAPSULES TWICE DAILY FOR 1ST 24 HOURS, THEN 1 CAP 4 TIMES DAILY Discharge Orders: Discharge ED (Routine); Ordered 05/31/23 Ordered By: Tanner Starr Referrals: Catalina Kline FNP [Primary Care Provider] - 1-3 days Discharge Diet: Advance as tolerated Discharge Activity: Resume usual activity Patient Instructions: Chest Pain (ED) Coding Level of Care Code ED Psychological Operations for Chg Fwd Documented by User: Tanner Starr MD 05/31/23 14:14 HPI - Chest Pain General: Chief Complaint: Chest Pain Stated Complaint: CP Time Seen by Provider: 05/31/23 11:42 History of Present Illness: . PFSH ED PFSH: Medical History Darryl's disease Hypothyroidism PCOS (polycystic ovarian syndrome) Surgical History History of tonsillectomy Status post appendectomy Family History Brother Diabetes Cancer brain seizures Social History Smoking and tobacco status: never smoked Alcohol intake: never Substance/Drug Use: never Adopted: No Caregiver/support person: No Lives independently: No Household members: spouse Marital status: Current occupational status: employed Sexually active: Yes Do you think of yourself as: Straight/Heterosexual Current gender identity: Female Course Vital Signs: Vital signs: Vital Signs Temperature 98.1 F 05/31/23 11:36 Pulse Rate 83 05/31/23 12:27 Respiratory Rate 21 H 05/31/23 12:27 Blood Pressure 116/77 05/31/23 12:27 Pulse Oximetry 99 05/31/23 12:27 Oxygen Delivery Me thod Room Air 05/31/23 12:27 MDM - Chest Pain Medical Decision Making Patient presents with chest pains atypical in nature could be a reflux or esophageal spasms her troponin EKG x-ray are all normal we will place her on Protonix she is stable for discharge she is to follow-up with PCP and return if worsening. Medical Records I reviewed the patient's medical records. Lab Data I reviewed the patient's lab results. 05/31/23 11:55 05/31/23 11:55 Radiology Impressions Chest X-Ray 05/31/23 11:42 Impression: Negative chest. Laboratory Results WBC 8.9 10^3/uL (4.0-10.0) 05/31/23 11:55 RBC 4.48 10^6/uL (4.1-5.3) 05/31/23 11:55 Hgb 12.6 g/dL (11.5-15.3) 05/31/23 11:55 Hct 39.1 % (37.0-47.0) 05/31/23 11:55 MCV 87.3 fl (81-99) 05/31/23 11:55 MCH 28.1 pg (28.0-34.0) 05/31/23 11:55 MCHC 32.2 g/dL (30.0-36.0) 05/31/23 11:55 RDW 13.8 % (12.1-15.1) 05/31/23 11:55 Plt Count 358 10^3/cmm (130-400) 05/31/23 11:55 MPV 9.3 fL (7.4-10.4) 05/31/23 11:55 Neut % (Auto) 78.3 % 05/31/23 11:55 Lymph % (Auto) 13.9 % 05/31/23 11:55 [place] % (Auto) 5.3 % 05/31/23 11:55 Eos % (Auto) 2.1 % 05/31/23 11:55 Baso % (Auto) 0.1 % 05/31/23 11:55 Neut # (Auto) 6.96 10^3/uL (1.8-7.7) 05/31/23 11:55 Lymph # (Auto) 1.2 10^3/uL (0.8-4.8) 05/31/23 11:55 [place] # (Auto) 0.5 10^3/uL (0.2-0.9) 05/31/23 11:55 Eos # (Auto) 0.2 10^3/uL (0.0-0.8) 05/31/23 11:55 Baso # (Auto) 0.0 10^3/uL (0.0-0.1) 05/31/23 11:55 Nucleated RBC % (auto) 0 % 05/31/23 11:55 Nucleated RBCs # 0.0 /100WBC 05/31/23 11:55 D-Dimer 0.30 ug/mIFEU (0-0.59) 05/31/23 11:55 Sodium 138 mmol/L (136-145) 05/31/23 11:55 Potassium 4.3 mmol/L (3.5-5.1) 05/31/23 11:55 Chloride 105 mmol/L (98-107) 05/31/23 11:55 Carbon Dioxide 23 mmol/L (22-29) 05/31/23 11:55 Anion Gap 14.3 (5-19) 05/31/23 11:55 BUN 11 mg/dL (6-20) 05/31/23 11:55 Creatinine 0.8 mg/dL (0.5-0.9) 05/31/23 11:55 GFR Calculation 82.6 mL/min (90-130) L 05/31/23 11:55 Glucose 68 mg/dL (65-115) 05/31/23 11:55 Calculated Osmolality 284 mOsm/kg (285-295) L 05/31/23 11:55 Calcium 9.1 mg/dL (8.5-10.5) 05/31/23 11:55 Total Bilirubin 0.8 mg/dL (0.15-1.2) 05/31/23 11:55 AST 19 U/L (0-32) 05/31/23 11:55 ALT 17 U/L (0-33) 05/31/23 11:55 Alkaline Phosphatase 91 U/L (35-105) 05/31/23 11:55 Troponin T Baseline 6 ng/L (0-10) 05/31/23 11:55 Total Protein 7.1 g/dL (6.6-8.7) 05/31/23 11:55 Albumin 4.4 g/dL (3.5-5.2) 05/31/23 11:55 Globulin 2.7 g/dL (1.3-4.6) 05/31/23 11:55 Discharge Plan Discharge Patient Disposition: Home Clinical Impression: Chest pain Condition: Stable Prescriptions: New Protonix 40 mg tablet,delayed release (DR/EC) 40 mg PO DAILY Qty: 60 0RF No Action levothyroxine [Euthyrox] 125 mcg tablet 250 mcg PO DAILY clindamycin HCl 300 mg capsule 300 mg PO QID Rx Instructions: TAKE 2 CAPSULES TWICE DAILY FOR 1ST 24 HOURS, THEN 1 CAP 4 TIMES DAILY Discharge Orders: Discharge ED (Routine); Ordered 05/31/23 Ordered By: Tanner Starr Referrals: Catalina Kline FNP [Primary Care Provider] - 1-3 days Discharge Diet: Advance as tolerated Discharge Activity: Resume usual activity Patient Instructions: Chest Pain (ED) Coding Level of Care Code ED Psychological Operations for Marielena Ewdards
[2023-05-31 12:11] LABS: Basophils % 0.1 %; Eosinophils # 0.2 10^3/uL (0.0-0.8); Eosinophils % 2.1 %; Hematocrit 39.1 % (37.0-47.0); Hemoglobin 12.6 g/dL (11.5-15.3); Lymphocytes # 1.2 10^3/uL (0.8-4.8); Lymphocytes % 13.9 %; Mean Corpuscular HGB Conc 32.2 g/dL (30.0-36.0); Mean Corpuscular Hemoglobin 28.1 pg (28.0-34.0); Mean Corpuscular Volume 87.3 fl (81-99); Mean Platelet Volume 9.3 fL (7.4-10.4); Monocytes # 0.5 10^3/uL (0.2-0.9); Monocytes % 5.3 %; Neutrophils # 6.96 10^3/uL (1.8-7.7); Neutrophils % 78.3 %; Nucleated Red Blood Cells % 0 %; Platelet Count 358 10^3/cmm (130-400); Red Blood Count 4.48 10^6/uL (4.1-5.3); Red Cell Distribution Width 13.8 % (12.1-15.1); White Blood Count 8.9 10^3/uL (4.0-10.0)
[2023-05-31 12:27] VITALS: BP 116/77; PULSE 83; RESP 21; O2SAT 99
[2023-05-31 12:30] LABS: Alanine Aminotransferase 17 U/L (0-33); Albumin Level 4.4 g/dL (3.5-5.2); Alkaline Phosphatase 91 U/L (35-105); Anion Gap 14.3 (5-19); Aspartate Amino Transferase 19 U/L (0-32); Blood Urea Nitrogen 11 mg/dL (6-20); Calcium 9.1 mg/dL (8.5-10.5); Carbon Dioxide 23 mmol/L (22-29); Chloride 105 mmol/L (98-107); Globulin 2.7 g/dL (1.3-4.6); Glomerular Filtration Rate 82.6 mL/min (90-130); Glucose 68 mg/dL (65-115); Osmolality Calculated 284 mOsm/kg (285-295); Potassium 4.3 mmol/L (3.5-5.1); Sodium 138 mmol/L (136-145); Total Bilirubin 0.8 mg/dL (0.15-1.2); Total Protein 7.1 g/dL (6.6-8.7)
[2023-05-31] MEDS: aluminum-mag hydrox-simethicon 30 ML, sucralfate oral liq 1 GM PO (12:40)
--- NOTE | 2023-05-31 12:54 | ECG_ITS ---
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 Measurements Intervals [place] Rate: 74 P: 44 MD: 167 QRS: 75 QRSD: 104 T: -4 QT: 383 QTc: 425 Interpretive Statements SINUS RHYTHM INCOMPLETE RIGHT BUNDLE BRANCH BLOCK [90+ ms QRS DURATION, TERMINAL R IN V1/V2, 40+ ms S IN I/aVL/V4/V5/V6] NONSPECIFIC T-WAVE ABNORMALITY No previous ECG available for comparison Electronically Signed On 05-31-2023 13:54:34 CDT by Bhavani Cardona M.D. [id number]
[2023-05-31 13:10] LABS: Troponin(5th) Baseline 6 ng/L (0-10)
== END 2023-05-31 14:18 | disposition home or self-care (01) ==
PROVIDERS: Family Medicine; Emergency Provider Emergency Medicine; PCP Registered Nurse
DX: R07.9 Chest pain, unspecified (principal)
CPT/HCPCS: 71045; 80053; 84484; 85025; 85378; 93005; 99285

== ENCOUNTER → 2024-03-26 10:31 | Outpatient (BNVA) | payer BC, SELFPAY | PROVIDERS: PCP Registered Nurse; Visit Provider Registered Nurse | DX: E03.8 Other specified hypothyroidism (principal); E06.3 Autoimmune thyroiditis | CPT/HCPCS: 84439; 84443 ==

== ENCOUNTER → 2024-05-18 13:33 | Outpatient (BNVA) | payer BC, SELFPAY | PROVIDERS: PCP Registered Nurse; Visit Provider Registered Nurse | DX: J02.9 Acute pharyngitis, unspecified (principal); J01.10 Acute frontal sinusitis, unspecified | CPT/HCPCS: 87880 ==

== ENCOUNTER → 2024-08-24 09:18 | Outpatient (BNVA) | payer BC, SELFPAY | PROVIDERS: PCP Registered Nurse; Visit Provider Registered Nurse | DX: E03.8 Other specified hypothyroidism (principal); E06.3 Autoimmune thyroiditis | CPT/HCPCS: 84439; 84443 ==

== ENCOUNTER → 2024-12-07 08:35 | Outpatient (BNVA) | payer BC, SELFPAY | PROVIDERS: PCP Registered Nurse; Visit Provider Registered Nurse | DX: K52.29 Other allergic and dietetic gastroenteritis and colitis (principal); E03.8 Other specified hypothyroidism; E06.3 Autoimmune thyroiditis | CPT/HCPCS: 84439; 84443; 86003 ==

== ENCOUNTER → 2025-06-01 12:05 | Outpatient (BNVA) | payer BC, SELFPAY | PROVIDERS: PCP Registered Nurse; Visit Provider Registered Nurse | DX: E03.8 Other specified hypothyroidism (principal); E06.3 Autoimmune thyroiditis | CPT/HCPCS: 84439; 84443 ==